=== PATIENT | female | born 1955 | race Caucasian/White ===

== ENCOUNTER 2018-05-19 07:17 | Emergency (ER) | payer BC ==
[~2018-05-19] VITALS: Ht 152.4 cm; Wt 72.6 kg
[~2018-05-19 07:17] MED LIST: BENTYL10 MG ORAL; ZOFRAN4 MG ORAL
[2018-05-19 07:38] VITALS: BP 136/76
--- NOTE | 2018-05-19 07:39 | NUR ---
ED Nurse Note:pt. caME with right ear pain for 1 week
--- NOTE | 2018-05-19 07:47 | Emergency Room Report ---
History of Present Illness General Chief Complaint: Earache Source: Patient Present Illness HPI Patient presents with complaints of right ear pain reports that previously was seen by her primary physician placed on oral antibiotics Appeared to improve minimally however again the pain has returned Patient feels pressure in that area Pain is 5 out of 10 Denies any headache denies any visual changes Denies any obvious trauma however she does use Q-tips in her ears Denies any change with position denies any discharge Allergies: Coded Allergies: No Known Allergies (Unverified , 06/19/15) Patient History Past Medical History: see triage record Pertinent Family History: none Now: No Reviewed Nursing Documentation: PMH: Agreed; PSxH: Agreed Nursing Documentation-PMH Past Medical History: No History, Except For Hx Seizures: Yes Review of Systems All Other Systems: negative except mentioned in HPI Physical Exam Vital Signs Date Time Temp Pulse Resp B/P (MAP) Pulse Ox O2 Delivery O2 Flow Rate FiO2 05/19/18 07:24 97.9 95 20 136/76 95 Room Air Sp02 EP Interpretation: reviewed, normal General Appearance: well appearing, no apparent distress Head: normocephalic, atraumatic Eyes: bilateral eye PERRL, bilateral eye EOMI ENT: other - Left ear is clear, the right ear shows edematous canal, the tympanic membrane is able to be visualized does not show any bulging or perforation. Mastoid is nontender Neck: supple Respiratory: lungs clear Musculoskeletal: normal inspection Neurologic: alert, oriented x3, responsive Skin: other - As noted above the canal does appear edematous just on general visualization Lymphatic: no adenopathy Medical Decision Making Diagnostic Impression: Primary Impression: Otitis externa ER Course Patient's clinical history and exam is consistent with otitis externa The canal is patent at this time and patient will be trialed on antibiotic drops I did discuss possible ENT follow-up as needed At this time patient remains stable and appropriate for initial conservative outpatient trial Last Vital Signs Date Time Temp Pulse Resp B/P (MAP) Pulse Ox O2 Delivery O2 Flow Rate FiO2 05/19/18 07:38 97.9 78 20 136/76 95 Room Air Status: improved Disposition: HOME, SELF-CARE Condition: Improved Additional Instructions: Patient is provided with the discharge instructions notified to follow up with primary doctor in the next 2-3 days otherwise return to the er with any worsening symptoms. Please note that this report is being documented using [employer] technology. This can lead to erroneous entry secondary to incorrect interpretation by the dictating instrument. Austen Grove DO May 19, 2018 07:47
[2018-05-19] MEDS ORDERED: CORTISPORIN EAR10 ML OTIC (07:48)
--- NOTE | 2018-05-19 07:54 | NUR ---
ED Nurse Note:pt. received d/c instructions with prescriptions and left ER with steady gait
== END 2018-05-19 08:21 | disposition home or self-care (01) ==
LOC: EMR 07:45
DX: H60.91 Unspecified otitis externa, right ear (principal)
CPT/HCPCS: 99282

== ENCOUNTER 2018-06-15 01:00 | Inpatient (IN) | payer BC ==
[~2018-06-15] VITALS: Ht 144.8 cm; Wt 74.8 kg
[~2018-06-15 01:00] MED LIST changes: +CORTISPORIN EAR10 ML OTIC
[2018-06-15] MEDS ORDERED: LORAZEPAM1 MG ORAL (01:15)
[2018-06-15] MEDS ORDERED: DILANTIN100 MG ORAL (01:15)
[2018-06-15 01:30] VITALS: BP 148/84
[2018-06-15] MEDS ORDERED: Lidocaine 1% 10mg/ml/Epi 0.005mg/ml 30ml vial INJ ONE (01:30)
[2018-06-15] MEDS ORDERED: LORazepam Inj 2mg/ml 1ml IV ONE (01:30)
--- NOTE | 2018-06-15 01:30 | NUR ---
ED Nurse Note: Pt was BIBA from home, c/o Seizure episode with right forehead was injuried with laceration. Pt is A/O X 4, Vital signs stable at this time.
--- NOTE | 2018-06-15 02:00 | NUR ---
ED Nurse Note: Blood and urine were collected and sent to Lab.
--- NOTE | 2018-06-15 02:10 | NUR ---
ED Nurse Note: Meds given as ordered.
[2018-06-15] MEDS ORDERED: Lidocaine 1% Plain 30 ml INJ ONE (02:20)
[2018-06-15 02:27] LABS: ANION GAP 5 mmol/L (5-15); BASOPHILS % (AUTO) 0.5 % (0.0-2.0); BLOOD UREA NITROGEN 14 mg/dL (7-18); CALCIUM 9.1 MG/DL (8.5-10.1); CARBON DIOXIDE 29 MMOL/L (21-32); CHLORIDE 102 MMOL/L (98-107); CREATININE 0.9 MG/DL (0.55-1.30); EOSINOPHILS % (AUTO) 0.2 % (0.0-3.0); HEMATOCRIT 43.6 % (37.0-47.0); HEMOGLOBIN 14.8 G/DL (12.0-16.0); LYMPHOCYTES % (AUTO) 14.9 % (20.0-45.0); MEAN CORPUSCULAR VOLUME 87 FL (80-99); NEUTROPHILS % (AUTO) 78.3 % (45.0-75.0); PLATELET COUNT 185 K/UL (150-450); RED CELL DISTRIBUTION WIDTH 11.9 % (11.6-14.8); SODIUM 136 MMOL/L (136-145); WHITE BLOOD COUNT 9.7 K/UL (4.8-10.8)
[2018-06-15 02:31] LABS: ALANINE AMINOTRANSFERASE 29 U/L (12-78); ALBUMIN 3.8 G/DL (3.4-5.0); ALBUMIN/GLOBULIN RATIO 1.1 (1.0-2.7); ALKALINE PHOSPHATASE 111 U/L (46-116); ASPARTATE AMINO TRANSFERASE 21 U/L (15-37); BILIRUBIN,TOTAL < 0.1 MG/DL (0.2-1.0); CREATINE KINASE 246 U/L (26-308)
[2018-06-15 02:33] LABS: APPEARANCE,URINE CLEAR; BILIRUBIN, URINE NEGATIVE (NEGATIVE); COLOR,URINE PALE YELLOW; GLUCOSE, URINE (UA) NEGATIVE (NEGATIVE); KETONES,URINE NEGATIVE (NEGATIVE); LEUKOCYTE ESTERASE ,URINE NEGATIVE (NEGATIVE); NITRITE,URINE NEGATIVE (NEGATIVE); PH,URINE 7 (4.5-8.0); PROTEIN,URINE NEGATIVE (NEGATIVE); UROBILINOGEN,URINE NORMAL MG/DL (0.0-1.0)
[2018-06-15] MEDS ORDERED: Phenytoin 500 MG in NS 110 ML IVPB STA (02:45)
[2018-06-15] MEDS ORDERED: Metoprolol 5mg/5ml Inj IVP STA (02:52)
[2018-06-15] MEDS ORDERED: Nitroglycerin 2% oint pkt TOPIC ONE (03:00)
--- NOTE | 2018-06-15 03:30 | NUR ---
Dr.J.Lewis prajapati([facility] for )
--- NOTE | 2018-06-15 04:39 | Emergency Room Report ---
History of Present Illness General Chief Complaint: Laceration Source: Patient Present Illness HPI Patient presents after having a seizure. She is on Dilantin. She hit her forehead and has a laceration there. She rates the pain 5/10. She denies neck pain. There is no other extremity trauma. She denies tongue trauma. Claims to be taking her medication. He claims her tetanus is up-to-date. No fevers, chills, nausea, vomiting, diarrhea chest pain palpitations, rashes other than the laceration. Allergies: Coded Allergies: No Known Allergies (Unverified , 06/19/15) Patient History Past Medical History: see triage record Social History: Denies: smoking, alcohol use, drug use Social History Narrative Last Menstrual Period: CHIN Reviewed Nursing Documentation: PMH: Agreed; PSxH: Agreed Nursing Documentation-PMH Past Medical History: No History, Except For Hx Seizures: Yes Review of Systems All Other Systems: negative except mentioned in HPI Physical Exam Vital Signs Date Time Temp Pulse Resp B/P (MAP) Pulse Ox O2 Delivery O2 Flow Rate FiO2 06/15/18 01:11 98.1 103 16 157/67 97 Room Air Sp02 EP Interpretation: reviewed, normal General Appearance: well appearing, no apparent distress, GCS 15 Head: normocephalic, other - Laceration right forehead Eyes: bilateral eye normal inspection, bilateral eye PERRL, bilateral eye EOMI ENT: moist mucus membranes Neck: full range of motion, supple, no bony tend Respiratory: chest non-tender, lungs clear, normal breath sounds Cardiovascular #1: regular rate, rhythm Cardiovascular #2: 2+ radial (R) Gastrointestinal: normal inspection, normal bowel sounds, non tender, no mass, non-distended Genitourinary: no CVA tenderness Musculoskeletal: back normal, gait/station normal, normal range of motion Neurologic: alert, oriented x3, stamp clerk III-XII nml as tested, motor strength/tone normal, DTRs symmetric, sensory intact, cerebellar normal, normal gait, speech normal Psychiatric: mood/affect normal Skin: warm/dry, laceration - Left eyebrow forehead Medical Decision Making Diagnostic Impression: Primary Impression: Seizure Additional Impressions: Facial laceration Qualified Codes: S01.81XA - Laceration without foreign body of other part of head, initial encounter Non-STEMI (non-ST elevated myocardial infarction) ER Course Patient presents after seizure. She has a facial laceration to her eyebrow. Differential includes arrhythmia, subtherapeutic medication level, electrolyte imbalance, brain bleed amongst others. Evaluation will be with EKG, CT of the head chest x-ray and labs. The patient will be given a dose of IV Ativan until labs return. He is placed on a personnel monitor and seizure precautions are observed. She will need to have this laceration.. It is expensive and through eyebrow and therefore plastic surgeon will be notified. EKG without injury. White count normal. Chest x-ray no infiltrates. CT without bleed. Called with elevated troponin. Patient given aspirin and metoprolol. Patient's Dilantin level subtherapeutic. An IV dose is given. Called Dr. Guthrie. He will come to repair the laceration. Patient improved after treatment. Admit tele as the patient has a positive troponin. The patient was discussed with Dr. Morgan. Laboratory Tests Test 06/15/18 01:55 White Blood Count 9.7 K/UL (4.8-10.8) Red Blood Count 5.00 M/UL (4.20-5.40) Hemoglobin 14.8 G/DL (12.0-16.0) Hematocrit 43.6 % (37.0-47.0) Mean Corpuscular Volume 87 FL (80-99) Mean Corpuscular Hemoglobin 29.6 PG (27.0-31.0) Mean Corpuscular Hemoglobin Concent 33.9 G/DL (32.0-36.0) Red Cell Distribution Width 11.9 % (11.6-14.8) Platelet Count 185 K/UL (150-450) Mean Platelet Volume 6.9 FL (6.5-10.1) Neutrophils (%) (Auto) 78.3 % (45.0-75.0) H Lymphocytes (%) (Auto) 14.9 % (20.0-45.0) L Monocytes (%) (Auto) 6.0 % (1.0-10.0) Eosinophils (%) (Auto) 0.2 % (0.0-3.0) Basophils (%) (Auto) 0.5 % (0.0-2.0) Urine Color Pale yellow Urine Appearance Clear Urine pH 7 (4.5-8.0) Urine Specific [place] 1.010 (1.005-1.035) Urine Protein Negative (NEGATIVE) Urine Glucose (UA) Negative (NEGATIVE) Urine Ketones Negative (NEGATIVE) Urine Blood 2+ (NEGATIVE) H Urine Nitrite Negative (NEGATIVE) Urine Bilirubin Negative (NEGATIVE) Urine Urobilinogen Normal MG/DL (0.0-1.0) Urine Leukocyte Esterase Negative (NEGATIVE) Urine RBC 0-2 /HPF (0 - 2) Urine WBC 0-2 /HPF (0 - 2) Urine Squamous Epithelial Cells Occasional /LPF Urine Bacteria None /HPF (NONE) Sodium Level 136 MMOL/L (136-145) Potassium Level 4.0 MMOL/L (3.5-5.1) Chloride Level 102 MMOL/L (98-107) Carbon Dioxide Level 29 MMOL/L (21-32) Anion Gap 5 mmol/L (5-15) Blood Urea Nitrogen 14 mg/dL (7-18) Creatinine 0.9 MG/DL (0.55-1.30) Estimate Glomerular Filtration Rate > 60 mL/min (>60) Glucose Level 124 MG/DL (74-106) H Calcium Level 9.1 MG/DL (8.5-10.1) Total Bilirubin < 0.1 MG/DL (0.2-1.0) L Aspartate Amino Transferase (AST) 21 U/L (15-37) Alanine Aminotransferase (ALT) 29 U/L (12-78) Alkaline Phosphatase 111 U/L (46-116) Total Creatine Kinase 246 U/L (26-308) Troponin I 0.161 ng/mL (0.000-0.056) Total Protein 7.4 G/DL (6.4-8.2) Albumin 3.8 G/DL (3.4-5.0) Globulin 3.6 g/dL Albumin/Globulin Ratio 1.1 (1.0-2.7) Urine Opiates Screen Negative (NEGATIVE) Urine Barbiturates Screen Negative (NEGATIVE) Phenytoin (Dilantin) Level 7.3 ug/mL (10-20) L Phencyclidine (PCP) Screen Negative (NEGATIVE) Urine Amphetamines Screen Negative (NEGATIVE) Urine Benzodiazepines Screen Negative (NEGATIVE) Urine Cocaine Screen Negative (NEGATIVE) Urine Marijuana (THC) Screen Negative (NEGATIVE) Serum Alcohol < 3 mg/dL EKG Diagnostic Results Rate: tachycardiac Rhythm: NSR ST Segments: no acute changes Rhythm Strip Diag. Results EP Interpretation: yes Rhythm: no PVC's, no ectopy, other - Sinus tachycardia Chest X-Ray Diagnostic Results Chest X-Ray Diagnostic Results : Chest X-Ray Ordered: Yes # of Views/Limited/Complete: 1 View Indication: Other Interpretation: no consolidation, no effusion, no pneumothorax, other - inc cor Impression: Other Electronically Signed by: Electronically signed by Jamie Ballard MD CT/MRI/US Diagnostic Results CT/MRI/US Diagnostic Results : Imaging Test Ordered: head Impression no acute abnormality. Sinusitis Last Vital Signs Date Time Temp Pulse Resp B/P (MAP) Pulse Ox O2 Delivery O2 Flow Rate FiO2 06/15/18 12:00 Room Air 06/15/18 12:00 77 06/15/18 07:00 98.1 16 112/71 97 Status: improved Disposition: ADMITTED INPATIENT Condition: Serious Referrals: NON PHYSICIAN (PCP) Jamie Ballard MD Jun 15, 2018 04:39
--- NOTE | 2018-06-15 05:37 | NUR ---
After speaking with Dr.Liu Pitts states is on the way, do not take patient upstairs to her room yet.
--- NOTE | 2018-06-15 06:03 | NUR ---
is here now.
[2018-06-15] MEDS ORDERED: Bacitracin Oint UD TOPIC ONE (06:15)
--- NOTE | 2018-06-15 06:39 | NUR ---
NURSE NOTES: Received a phone report from RICKY Abebe.Patient stable,A&Ox4 SR on monitor worker,tolerated r/air well,lungs clear, IV asymptomatic,intact on R f/arm and R/hand 20G ,BS active in all quadrants,waiting patient to the floor.
--- NOTE | 2018-06-15 06:55 | NUR ---
NURSE NOTES: Patient transferred to the floor in stable condition,no c/o pain,no respiratory distress noted,rails patted for seizures precautions,belongings list signed, on bedside.
--- NOTE | 2018-06-15 07:00 | NUR ---
TRANSFER TO FLOOR: Patient transferred to [facility] as ordered . Report given to Maricel/RN . Belongings sent with pt and rechecked with RN. Pt is A/O X 4. VSS.
--- NOTE | 2018-06-15 07:25 | NUR ---
HAND-OFF: Report given to RICKY Chavez.Patient stable.
--- NOTE | 2018-06-15 07:30 | NUR ---
NURSE NOTES: Received report from Maricel GARCÍA. Pt is awake, alert, oriented x4, family at bedside. On room air with no respiratory distress, however reports nasal congestion, which she has had for x2 weeks. Denies chest pain. Denies nausea. IV access on right FA #20G, and right hand #20G, both saline locks, patent/intact. Skin has right forehead laceration, post suture placement in ER, covered with dressing. Per pt report, she is ambulatory, currently placed on seizure precautions, post x1 episode of seizure at home prior to admission, which led to her fall at home sustaining the forehead laceration. Side rails are padded, bed in lowest position, three side rails up, brakes engaged, call light is placed within easy reach. Will contact Dr Valdez for new admission orders and follow plan of care per MD orders and protocol.
[2018-06-15 08:00] VITALS: BP 120/63
[2018-06-15] MEDS ORDERED: Morphine Sulfate 2mg/ml Inj(IV/IM USE ONLY) IVP PRN (08:45)
[2018-06-15] MEDS ORDERED: Miralax 17gm pkt ORAL PRN (08:45)
[2018-06-15] MEDS ORDERED: Nitroglycerin Subl 0.4mg tab SL PRN (08:45)
[2018-06-15] MEDS ORDERED: Morphine Sulfate 4mg/ml Inj (IV USE ONLY) IVP PRN (08:45)
[2018-06-15] MEDS ORDERED: LORazepam Inj 2mg/ml 1ml IV PRN (08:45)
[2018-06-15] MEDS ORDERED: Mylanta II UD 30ml ORAL PRN (08:45)
[2018-06-15] MEDS ORDERED: Phenytoin 100mg cap ORAL SCH (09:00)
[2018-06-15] MEDS: Enoxaparin 40mg Inj SUBQ SCH (09:35)
[2018-06-15] MEDS: Docusate 100mg cap ORAL SCH ×2 (09:36→21:36)
[2018-06-15 11:59] LABS: PHOSPHORUS 3.7 MG/DL (2.5-4.9)
[2018-06-15 12:00] VITALS: BP 114/64
[2018-06-15] MEDS: Flonase Nasal Inhaler 16gm NASAL SCH ×2 (12:00→17:53)
[2018-06-15] MEDS: Phenylephrine 0.25% Nasal Spray NASAL PRN (12:00)
[2018-06-15] MEDS ORDERED: Ocean Nasal Spray 45ml NASAL PRN (12:00)
--- NOTE | 2018-06-15 12:09 | History and Physical ---
History of Present Illness General Date patient seen: Jun 15, 2018 Time patient seen: 09:15 Reason for Hospitalization: seizure, elevated troponin Present Illness HPI 62 y/o Fris[place] female who presented to the ED last night with seizures, unwitnessed. Pt has a history of seizure disorder, followed by Dr. Swanson as an outpatient. She is compliant with her dilantin, takes 200mg bid without missing any recent doses. No fevers/chills, flu like symptoms, or any other complaints. Pt fell and hit her head, sustained a laceration on the R forehead region. She has been seizure free for 5 years on this current dose. She was loaded with 500mg IV dilantin in the ED and also given ativan. She denies hx of CAD/CHF, and denies ever experiencing ana pain or dyspnea, however a trop was checked in the ED and it was indeterminate range. The patient was then admitted to the floor for continued eval and care. CT head in ED also was neg for acute pathology. Allergies: Coded Allergies: No Known Allergies (Unverified , 06/19/15) Medication History Scheduled Dicyclomine Hcl* (Bentyl*), 10 MG ORAL FOUR TIMES A DAY Lorazepam* (Lorazepam*), 1 MG ORAL DAILY, (Reported) Neomycin/Polymyxin B Sulf/Hc* (Cortisporin Ear Solution*), 2 DROP OTIC FOUR TIMES A DAY Phenytoin Sodium Extended* (Dilantin*), 200 MG ORAL TWICE A DAY, (Reported) Scheduled PRN Ondansetron (Zofran), 4 MG ORAL Q6H PRN for Nausea & Vomiting Patient History History Provided By: Patient Healthcare decision maker Resuscitation status Advanced Directive on File Past Medical/Surgical History Past Medical/Surgical History: (1) Seizure Social History Social History: (1) No significant social history (2) Family history in first degree relatives is unremarkable Review of Systems Constitutional: Reports: no symptoms Eye: Reports: no symptoms ENT: Reports: no symptoms Respiratory: Reports: no symptoms Cardiovascular: Reports: no symptoms Gastrointestinal: Reports: no symptoms Genitourinary: Reports: no symptoms Musculoskeletal: Reports: no symptoms Skin: Reports: no symptoms Psychiatric: Reports: no symptoms Neurological: Reports: seizure Endocrine: Reports: no symptoms Hematologic/Lymphatic: Reports: no symptoms Physical Exam General Appearance: WD/WN, no apparent distress, alert Physical Exam Narrative General: alert, cooperative, no distress, appears stated age Head: R forehead laceration, dressing c/d/i Eyes: conjunctivae/corneas clear. PERRL, EOM's intact Throat: lips, mucosa, and tongue normal. MMM Neck: supple, symmetrical, trachea midline, and no JVD Lungs: clear to auscultation bilaterally Heart: regular rate and rhythm, S1, S2 normal, no murmur, click, rub or gallop Abdomen: soft, non-tender, non-distended, bowel sounds normal; no masses or organomegaly Extremities: extremities normal, atraumatic, no cyanosis or edema Pulses: 2+ and symmetric Skin: skin color, texture, turgor normal; no rashes or lesions Neurologic: grossly normal, no focal deficits Last 24 Hour Vital Signs Date Time Temp Pulse Resp B/P (MAP) Pulse Ox O2 Delivery O2 Flow Rate FiO2 06/15/18 08:00 90 06/15/18 07:00 98.1 89 16 112/71 97 Room Air 06/15/18 04:58 101 148/84 06/15/18 04:57 148/84 06/15/18 02:40 98.1 06/15/18 01:30 98.1 101 16 148/84 97 Room Air 06/15/18 01:11 98.1 103 16 157/67 97 Room Air Intake and Output 06/14/18 06/15/18 19:00 07:00 Intake Total 1600 ml Balance 1600 ml Intake Oral 0 ml IV Total 1600 ml Laboratory Tests Test 06/15/18 01:55 06/15/18 11:05 White Blood Count 9.7 K/UL (4.8-10.8) Red Blood Count 5.00 M/UL (4.20-5.40) Hemoglobin 14.8 G/DL (12.0-16.0) Hematocrit 43.6 % (37.0-47.0) Mean Corpuscular Volume 87 FL (80-99) Mean Corpuscular Hemoglobin 29.6 PG (27.0-31.0) Mean Corpuscular Hemoglobin Concent 33.9 G/DL (32.0-36.0) Red Cell Distribution Width 11.9 % (11.6-14.8) Platelet Count 185 K/UL (150-450) Mean Platelet Volume 6.9 FL (6.5-10.1) Neutrophils (%) (Auto) 78.3 % (45.0-75.0) H Lymphocytes (%) (Auto) 14.9 % (20.0-45.0) L Monocytes (%) (Auto) 6.0 % (1.0-10.0) Eosinophils (%) (Auto) 0.2 % (0.0-3.0) Basophils (%) (Auto) 0.5 % (0.0-2.0) Urine Color Pale yellow Urine Appearance Clear Urine pH 7 (4.5-8.0) Urine Specific [place] 1.010 (1.005-1.035) Urine Protein Negative (NEGATIVE) Urine Glucose (UA) Negative (NEGATIVE) Urine Ketones Negative (NEGATIVE) Urine Blood 2+ (NEGATIVE) H Urine Nitrite Negative (NEGATIVE) Urine Bilirubin Negative (NEGATIVE) Urine Urobilinogen Normal MG/DL (0.0-1.0) Urine Leukocyte Esterase Negative (NEGATIVE) Urine RBC 0-2 /HPF (0 - 2) Urine WBC 0-2 /HPF (0 - 2) Urine Squamous Epithelial Cells Occasional /LPF Urine Bacteria None /HPF (NONE) Sodium Level 136 MMOL/L (136-145) Potassium Level 4.0 MMOL/L (3.5-5.1) Chloride Level 102 MMOL/L (98-107) Carbon Dioxide Level 29 MMOL/L (21-32) Anion Gap 5 mmol/L (5-15) Blood Urea Nitrogen 14 mg/dL (7-18) Creatinine 0.9 MG/DL (0.55-1.30) Estimat Glomerular Filtration Rate > 60 mL/min (>60) Glucose Level 124 MG/DL (74-106) H Calcium Level 9.1 MG/DL (8.5-10.1) Total Bilirubin < 0.1 MG/DL (0.2-1.0) L Aspartate Amino Transf (AST/SGOT) 21 U/L (15-37) Alanine Aminotransferase (ALT/SGPT) 29 U/L (12-78) Alkaline Phosphatase 111 U/L (46-116) Total Creatine Kinase 246 U/L (26-308) Troponin I 0.161 ng/mL (0.000-0.056) Pending Total Protein 7.4 G/DL (6.4-8.2) Albumin 3.8 G/DL (3.4-5.0) Globulin 3.6 g/dL Albumin/Globulin Ratio 1.1 (1.0-2.7) Urine Opiates Screen Negative (NEGATIVE) Urine Barbiturates Screen Negative (NEGATIVE) Phenytoin (Dilantin) Level 7.3 ug/mL (10-20) L Phencyclidine (PCP) Screen Negative (NEGATIVE) Urine Amphetamines Screen Negative (NEGATIVE) Urine Benzodiazepines Screen Negative (NEGATIVE) Urine Cocaine Screen Negative (NEGATIVE) Urine Marijuana (THC) Screen Negative (NEGATIVE) Serum Alcohol < 3 mg/dL Phosphorus Level 3.7 MG/DL (2.5-4.9) Magnesium Level 2.2 MG/DL (1.8-2.4) Height (Feet): 4 Height (Inches): 9.00 Weight (Pounds): 165 Medications Current Medications Medications (Trade) Dose Ordered Sig/Narendra Route PRN Reason Start Time Stop Time Status Last Admin Dose Admin Acetaminophen (Tylenol) 650 mg Q4H PRN ORAL Mild Pain (Pain Scale 1-3) 06/15/18 08:45 07/15/18 08:44 Acetaminophen (Tylenol) 650 mg Q4H PRN ORAL T>100.5 06/15/18 08:45 07/15/18 08:44 Al Hydroxide/Mg Hydroxide (Mylanta II) 30 ml Q6H PRN ORAL dyspepsia 06/15/18 08:45 07/15/18 08:44 Bisacodyl (Dulcolax) 10 mg HSPRN PRN RECTAL Constipation 06/15/18 08:45 07/15/18 08:44 Dextrose (Dextrose 50%) 25 ml Q30M PRN IV Hypoglycemia 06/15/18 08:45 07/15/18 08:44 Dextrose (Dextrose 50%) 50 ml Q30M PRN IV Hypoglycemia 06/15/18 08:45 07/15/18 08:44 Dicyclomine HCl (Bentyl) 10 mg FOUR TIMES A DAY ORAL 06/15/18 11:00 07/15/18 10:59 Diphenhydramine HCl (Benadryl) 25 mg Q6H PRN ORAL Itching/Pruritis 06/15/18 08:45 07/15/18 08:44 Docusate Sodium (Colace) 100 mg EVERY 12 HOURS ORAL 06/15/18 09:00 07/15/18 08:59 06/15/18 09:36 Enoxaparin Sodium (Lovenox) 40 mg DAILY SUBQ 06/15/18 10:00 07/15/18 09:59 06/15/18 09:35 Fluticasone Propionate (Flonase) 1 spray TWICE A DAY NASAL 06/15/18 12:00 07/15/18 11:59 06/15/18 12:00 Lorazepam (Ativan 2mg/ml 1ml) 1 mg Q2H PRN IV For Seizures 06/15/18 08:45 06/22/18 08:44 Magnesium Hydroxide (Mom) 30 ml HSPRN PRN ORAL Constipation 06/15/18 21:00 07/15/18 20:59 Morphine Sulfate (Morphine Sulfate) 2 mg Q4H PRN IVP Moderate Pain (Pain Scale 4-6) 06/15/18 08:45 06/22/18 08:44 Morphine Sulfate (Morphine Sulfate) 4 mg Q4H PRN IVP Severe Pain (Pain Scale 7-10) 06/15/18 08:45 06/22/18 08:44 Nitroglycerin (Ntg) 0.4 mg Q5M X 3 DOSES PRN SL Prn Chest Pain 06/15/18 08:45 07/15/18 08:44 Ondansetron HCl (Zofran) 4 mg Q6H PRN IVP Nausea & Vomiting 06/15/18 08:45 07/15/18 08:44 Phenylephrine HCl (John-Synephrine 0.25% Nasal Soln) 1 sprays BID PRN NASAL NASAL CONGESTION 06/15/18 12:00 07/15/18 11:59 06/15/18 12:00 Phenytoin (Dilantin) 225 mg TWICE A DAY ORAL 06/15/18 18:00 07/15/18 08:59 Polyethylene Glycol (Miralax) 17 gm HSPRN PRN ORAL Constipation 06/15/18 08:45 07/15/18 08:44 Sodium Chloride ([place] Nasal [place]) 1 spray Q4H PRN NASAL NASAL CONGESTION 06/15/18 12:00 07/15/18 11:59 06/15/18 12:00 Assessment/Plan Problem List: (1) Seizure Assessment & Plan: Recurrent seizures with subtherapeutic dilantin level, unclear etiology Discussed case with Dr. Kam Yanes over the phone who is covering [place] this weekend. He stated to increase the dose of dilantin to 450mg/day total, and that if electrolyted were normal the patient could be discharged home with close oupt followup Ativan prn CT head neg ICD Codes: R56.9 - Unspecified convulsions SNOMED: 83416719 (2) Elevated troponin level Assessment & Plan: Unclear etiology as to elevated troponin, pt asymptomatic without any history of cardiac issues Cont cardiac exercise specialist Trend troponins, serial EKGs Cardiology consult called. ICD Codes: R74.8 - Abnormal levels of other serum enzymes SNOMED: 232782740, 604040783, [id number] (3) Facial laceration Assessment & Plan: s/p lac repair by Plastics, Dr. Ernesto Guthrie Cont dressing care ICD Codes: S01.81XA - Laceration without foreign body of other part of head, initial encounter SNOMED: 092074907 Qualifiers: Qualified Codes: S01.81XA - Laceration without foreign body of other part of head, initial encounter Fatoumata Valdez MD Jun 15, 2018 12:09
[2018-06-15] MEDS: Dicyclomine 10mg Cap ORAL SCH ×4 (12:21→21:36)
--- NOTE | 2018-06-15 13:00 | NUR ---
NURSE NOTES: Dr Carter saw pt at bedside, aware of elevated troponin 0.238 from 0.161. 2D Echo ordered, resulted 60% EF.
--- NOTE | 2018-06-15 13:31 | Consultation ---
History of Present Illness General Date patient seen: Jun 15, 2018 Time patient seen: 13:25 Chief Complaint: Laceration Present Illness HPI 62 y/o Japanese female with seizure disorder presents with breakthrough, she is compliant with Meds, no fever no trauma, sustained facial laceration. She has been seizure free for 5 years on this current dose. Cardiology consulted for elevated rising troponin. no chest pain no sob. Allergies: Coded Allergies: No Known Allergies (Unverified , 06/19/15) Medication History Scheduled Dicyclomine Hcl* (Bentyl*), 10 MG ORAL FOUR TIMES A DAY Lorazepam* (Lorazepam*), 1 MG ORAL DAILY, (Reported) Neomycin/Polymyxin B Sulf/Hc* (Cortisporin Ear Solution*), 2 DROP OTIC FOUR TIMES A DAY Phenytoin Sodium Extended* (Dilantin*), 200 MG ORAL TWICE A DAY, (Reported) Scheduled PRN Ondansetron (Zofran), 4 MG ORAL Q6H PRN for Nausea & Vomiting Patient History Healthcare decision maker Resuscitation status Full Code Advanced Directive on File Review of Systems Constitutional: Reports: no symptoms Eye: Reports: no symptoms ENT: Reports: no symptoms Respiratory: Reports: no symptoms Cardiovascular: Reports: no symptoms Gastrointestinal: Reports: no symptoms Genitourinary: Reports: no symptoms Musculoskeletal: Reports: no symptoms Skin: Reports: no symptoms Psychiatric: Reports: no symptoms Neurological: Reports: seizure Endocrine: Reports: no symptoms Hematologic/Lymphatic: Reports: no symptoms Physical Exam General Appearance: no apparent distress, alert Lines, tubes and drains: peripheral HEENT: normocephalic, atraumatic, anicteric Neck: non-tender, normal alignment, supple, normal inspection Respiratory/Chest: chest wall non-tender, lungs clear, normal breath sounds, no respiratory distress Cardiovascular/Chest: normal peripheral pulses, normal rate, regular rhythm Abdomen: normal bowel sounds, non tender Extremities: normal range of motion, non-tender, normal inspection 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 II-XII grossly normal, no motor/sensory deficits Last 24 Hour Vital Signs Date Time Temp Pulse Resp B/P (MAP) Pulse Ox O2 Delivery O2 Flow Rate FiO2 06/15/18 12:00 Room Air 06/15/18 12:00 77 06/15/18 12:00 98.8 85 19 114/64 (81) 95 06/15/18 08:00 98.0 82 18 120/63 (82) 98 06/15/18 08:00 90 06/15/18 07:00 98.1 89 16 112/71 97 Room Air 06/15/18 07:00 Room Air 06/15/18 04:58 101 148/84 06/15/18 04:57 148/84 06/15/18 02:40 98.1 06/15/18 01:30 98.1 101 16 148/84 97 Room Air 06/15/18 01:11 98.1 103 16 157/67 97 Room Air Intake and Output 06/14/18 06/15/18 19:00 07:00 Intake Total 1600 ml Balance 1600 ml Intake Oral 0 ml IV Total 1600 ml Laboratory Tests Test 06/15/18 01:55 06/15/18 11:05 White Blood Count 9.7 K/UL (4.8-10.8) Red Blood Count 5.00 M/UL (4.20-5.40) Hemoglobin 14.8 G/DL (12.0-16.0) Hematocrit 43.6 % (37.0-47.0) Mean Corpuscular Volume 87 FL (80-99) Mean Corpuscular Hemoglobin 29.6 PG (27.0-31.0) Mean Corpuscular Hemoglobin Concent 33.9 G/DL (32.0-36.0) Red Cell Distribution Width 11.9 % (11.6-14.8) Platelet Count 185 K/UL (150-450) Mean Platelet Volume 6.9 FL (6.5-10.1) Neutrophils (%) (Auto) 78.3 % (45.0-75.0) H Lymphocytes (%) (Auto) 14.9 % (20.0-45.0) L Monocytes (%) (Auto) 6.0 % (1.0-10.0) Eosinophils (%) (Auto) 0.2 % (0.0-3.0) Basophils (%) (Auto) 0.5 % (0.0-2.0) Urine Color Pale yellow Urine Appearance Clear Urine pH 7 (4.5-8.0) Urine Specific [place] 1.010 (1.005-1.035) Urine Protein Negative (NEGATIVE) Urine Glucose (UA) Negative (NEGATIVE) Urine Ketones Negative (NEGATIVE) Urine Blood 2+ (NEGATIVE) H Urine Nitrite Negative (NEGATIVE) Urine Bilirubin Negative (NEGATIVE) Urine Urobilinogen Normal MG/DL (0.0-1.0) Urine Leukocyte Esterase Negative (NEGATIVE) Urine RBC 0-2 /HPF (0 - 2) Urine WBC 0-2 /HPF (0 - 2) Urine Squamous Epithelial Cells Occasional /LPF Urine Bacteria None /HPF (NONE) Sodium Level 136 MMOL/L (136-145) Potassium Level 4.0 MMOL/L (3.5-5.1) Chloride Level 102 MMOL/L (98-107) Carbon Dioxide Level 29 MMOL/L (21-32) Anion Gap 5 mmol/L (5-15) Blood Urea Nitrogen 14 mg/dL (7-18) Creatinine 0.9 MG/DL (0.55-1.30) Estimat Glomerular Filtration Rate > 60 mL/min (>60) Glucose Level 124 MG/DL (74-106) H Calcium Level 9.1 MG/DL (8.5-10.1) Total Bilirubin < 0.1 MG/DL (0.2-1.0) L Aspartate Amino Transf (AST/SGOT) 21 U/L (15-37) Alanine Aminotransferase (ALT/SGPT) 29 U/L (12-78) Alkaline Phosphatase 111 U/L (46-116) Total Creatine Kinase 246 U/L (26-308) Troponin I 0.161 ng/mL (0.000-0.056) 0.238 ng/mL (0.000-0.056) Total Protein 7.4 G/DL (6.4-8.2) Albumin 3.8 G/DL (3.4-5.0) Globulin 3.6 g/dL Albumin/Globulin Ratio 1.1 (1.0-2.7) Urine Opiates Screen Negative (NEGATIVE) Urine Barbiturates Screen Negative (NEGATIVE) Phenytoin (Dilantin) Level 7.3 ug/mL (10-20) L Phencyclidine (PCP) Screen Negative (NEGATIVE) Urine Amphetamines Screen Negative (NEGATIVE) Urine Benzodiazepines Screen Negative (NEGATIVE) Urine Cocaine Screen Negative (NEGATIVE) Urine Marijuana (THC) Screen Negative (NEGATIVE) Serum Alcohol < 3 mg/dL Phosphorus Level 3.7 MG/DL (2.5-4.9) Magnesium Level 2.2 MG/DL (1.8-2.4) Height (Feet): 4 Height (Inches): 9.00 Weight (Pounds): 165 Medications Current Medications Medications (Trade) Dose Ordered Sig/Narendra Route PRN Reason Start Time Stop Time Status Last Admin Dose Admin Acetaminophen (Tylenol) 650 mg Q4H PRN ORAL Mild Pain (Pain Scale 1-3) 06/15/18 08:45 07/15/18 08:44 Acetaminophen (Tylenol) 650 mg Q4H PRN ORAL T>100.5 06/15/18 08:45 07/15/18 08:44 Al Hydroxide/Mg Hydroxide (Mylanta II) 30 ml Q6H PRN ORAL dyspepsia 06/15/18 08:45 07/15/18 08:44 Bisacodyl (Dulcolax) 10 mg HSPRN PRN RECTAL Constipation 06/15/18 08:45 07/15/18 08:44 Dextrose (Dextrose 50%) 25 ml Q30M PRN IV Hypoglycemia 06/15/18 08:45 07/15/18 08:44 Dextrose (Dextrose 50%) 50 ml Q30M PRN IV Hypoglycemia 06/15/18 08:45 07/15/18 08:44 Dicyclomine HCl (Bentyl) 10 mg FOUR TIMES A DAY ORAL 06/15/18 11:00 07/15/18 10:59 06/15/18 12:21 Diphenhydramine HCl (Benadryl) 25 mg Q6H PRN ORAL Itching/Pruritis 06/15/18 08:45 07/15/18 08:44 Docusate Sodium (Colace) 100 mg EVERY 12 HOURS ORAL 06/15/18 09:00 07/15/18 08:59 06/15/18 09:36 Enoxaparin Sodium (Lovenox) 40 mg DAILY SUBQ 06/15/18 10:00 07/15/18 09:59 06/15/18 09:35 Fluticasone Propionate (Flonase) 1 spray TWICE A DAY NASAL 06/15/18 12:00 07/15/18 11:59 06/15/18 12:00 Lorazepam (Ativan 2mg/ml 1ml) 1 mg Q2H PRN IV For Seizures 06/15/18 08:45 06/22/18 08:44 Magnesium Hydroxide (Mom) 30 ml HSPRN PRN ORAL Constipation 06/15/18 21:00 07/15/18 20:59 Morphine Sulfate (Morphine Sulfate) 2 mg Q4H PRN IVP Moderate Pain (Pain Scale 4-6) 06/15/18 08:45 06/22/18 08:44 Morphine Sulfate (Morphine Sulfate) 4 mg Q4H PRN IVP Severe Pain (Pain Scale 7-10) 06/15/18 08:45 06/22/18 08:44 Nitroglycerin (Ntg) 0.4 mg Q5M X 3 DOSES PRN SL Prn Chest Pain 06/15/18 08:45 07/15/18 08:44 Ondansetron HCl (Zofran) 4 mg Q6H PRN IVP Nausea & Vomiting 06/15/18 08:45 07/15/18 08:44 Phenylephrine HCl (John-Synephrine 0.25% Nasal Soln) 1 sprays BID PRN NASAL NASAL CONGESTION 06/15/18 12:00 07/15/18 11:59 06/15/18 12:00 Phenytoin (Dilantin) 225 mg TWICE A DAY ORAL 06/15/18 18:00 07/15/18 08:59 Polyethylene Glycol (Miralax) 17 gm HSPRN PRN ORAL Constipation 06/15/18 08:45 07/15/18 08:44 Sodium Chloride ([place] Nasal [place]) 1 spray Q4H PRN NASAL NASAL CONGESTION 06/15/18 12:00 07/15/18 11:59 06/15/18 12:00 Assessment/Plan Assessment/Plan Assessment Seizure Elevated Troponin Facial laceration Elevated troponin levels can occur after a GTC seizure. Patients at risk are the elderly and those with cardiovascular risk factors. Elevation of troponin levels after a GTC seizure reflects a minor ischemic cardiac injury related to the demand ischemia during the sympathetic overactivity that accompanies a GTC seizure Continue to trend troponin until peak No indication for heparin Continue telemetry Echocardiogram to evaluate LV function wall motion Routine outpatient stress test Jamie Carter MD Jun 15, 2018 13:31
[2018-06-15 16:00] VITALS: BP 110/54
[2018-06-15] MEDS: Phenytoin Susp 100mg/4ml ORAL SCH (17:53)
--- NOTE | 2018-06-15 19:26 | NUR ---
HAND-OFF: Report given to Coleman GARCÍA. Pt is resting in bed in stable condition, family at bedside. Endorsed plan of care.
--- NOTE | 2018-06-15 19:30 | NUR ---
NURSE NOTES: Received pt is asleep. Easily awakened. alert, oriented x4. Family at bedside. On room air. NSR on satellite project site monitor. Denies any pain, SOB or discomfort. No seizure activity noted up to present moment. IV access on rt FA #20G and rt hand #20G, both saline locks, patent and intact. Right forehead laceration d/t fall from seizure activity w/suture placed in ER, with dressing dry and intact. Side rails padded for seizure precautions. Bed in lowest position, w/three side rails up, brakes engaged, call light is w/in reach. Will continue POC
[2018-06-15 20:00] VITALS: BP 106/63
[2018-06-15] MEDS ORDERED: Milk of Magnesia 30ml Ud ORAL PRN (21:00)
--- NOTE | 2018-06-15 23:30 | NUR ---
NURSE NOTES: Asleep. Easily awakened. A/Ox4. at bedside. On room air. NSR on phototypesetting equipment monitor. Denies pain, SOB or discomfort. No seizure activity noted. Bed in lowest position, w/three side rails up, brakes engaged, call light is w/in reach. Will continue POC
[2018-06-16] VITALS: BP 116/55
[2018-06-16 04:00] VITALS: BP 120/58
--- NOTE | 2018-06-16 05:30 | NUR ---
NURSE NOTES A/A/Ox4. at bedside. On room air. NSR on cardiac exercise specialist. Denies pain, SOB or discomfort. No distress noted. No seizure activity noted. Bed in lowest position. call light is w/in reach. Will continue POC
[2018-06-16 06:32] LABS: BASOPHILS % (AUTO) 0.4 % (0.0-2.0); EOSINOPHILS % (AUTO) 0.2 % (0.0-3.0); HEMATOCRIT 37.7 % (37.0-47.0); HEMOGLOBIN 12.8 G/DL (12.0-16.0); LYMPHOCYTES % (AUTO) 23.5 % (20.0-45.0); MEAN CORPUSCULAR VOLUME 88 FL (80-99); NEUTROPHILS % (AUTO) 67.8 % (45.0-75.0); PLATELET COUNT 168 K/UL (150-450); RED BLOOD COUNT 4.29 M/UL (4.20-5.40); WHITE BLOOD COUNT 8.5 K/UL (4.8-10.8)
--- NOTE | 2018-06-16 07:20 | NUR ---
NURSE NOTES: Receive report from Coleman Arce patient ,patient awake eating breakfast, at bedside,instructed to call if need anything,not to get out bed by herself always call and wait for help-verbaluze understanding Addendum: 06/16/18 at 0806 by Janine ORTIZ RN verbalize understanding
[2018-06-16 07:30] LABS: ALANINE AMINOTRANSFERASE 21 U/L (12-78); ALBUMIN 3.2 G/DL (3.4-5.0); ALKALINE PHOSPHATASE 85 U/L (46-116); ANION GAP 8 mmol/L (5-15); ASPARTATE AMINO TRANSFERASE 20 U/L (15-37); BILIRUBIN,TOTAL 0.3 MG/DL (0.2-1.0); BLOOD UREA NITROGEN 10 mg/dL (7-18); CALCIUM 8.4 MG/DL (8.5-10.1); CARBON DIOXIDE 27 MMOL/L (21-32); CHLORIDE 105 MMOL/L (98-107); CREATININE 0.7 MG/DL (0.55-1.30); POTASSIUM 3.4 MMOL/L (3.5-5.1); SODIUM 140 MMOL/L (136-145)
[2018-06-16 08:00] VITALS: BP 129/62
[2018-06-16] MEDS: Dicyclomine 10mg Cap ORAL SCH ×2 (08:58→12:08)
[2018-06-16] MEDS: Docusate 100mg cap ORAL SCH (08:58)
[2018-06-16] MEDS: Phenytoin Susp 100mg/4ml ORAL SCH (08:59)
[2018-06-16] MEDS: Enoxaparin 40mg Inj SUBQ SCH (09:01)
[2018-06-16] MEDS: Phenylephrine 0.25% Nasal Spray NASAL PRN (09:04)
[2018-06-16] MEDS: Flonase Nasal Inhaler 16gm NASAL SCH (09:04)
--- NOTE | 2018-06-16 09:45 | NUR ---
NURSE NOTES: Received patient from RICKY Lee. Patient in bed and asleep. In room air. In no respiratory distress. case monitor in placed. Dressing on the right side of the head due to laceration from seizure at home. Per RN, patient is able to ambulate to bathroom with assistance. Bed in lowest position locked with side rails up. Will continue to follow plan of care.
--- NOTE | 2018-06-16 09:45 | NUR ---
HAND-OFF: Report given to RICKY CARTER ,patient resting,no seizure, went home,patient reminded not to get out bed by herself ,fall risk,seizure precaution,padded side rails .
--- NOTE | 2018-06-16 11:12 | NUR ---
CASE MANAGEMENT: INITIAL REVIEW 62 YO F PRESENTED TO OUR ED FROM HOME CC: LACERATION PMHx: SZ. SI:TROPONIN. SZ. T 98.1 HR 103 RR 16 B/P 157/67 SATS 97% ON RA GLU 124 IS: ATIVAN IV X1 NS BOLUS X2 TYLENOL PO X1 PHENYTOIN IV X1 ASA PO X1 NITRO BID TOP X1 LOPRESSOR IV X1 PATIENT ADMITTED TO [facility] @ 3552 DCP: PATIENT TO BE DISCHARGED TO HOME ONCE MEDICALLY CLEARED. PLAN OF CARE: CARDIO EVAL Addendum: 06/17/18 at 2006 by Trudi Andrea CM [employer]
[2018-06-16] MEDS ORDERED: PHENYTOIN100 MG/4 M ORAL (11:56)
[2018-06-16 12:00] VITALS: BP 116/65
--- NOTE | 2018-06-16 13:10 | NUR ---
Discharge: Patient is being discharged from medical care. Awake, alert and oriented x4. After care instructions were given. Patient verbalized understanding of After care instructions and medications. Dressing on the right laceration was changed. Patient signed patient consent in the medical record for patient destination upon discharge. All medical devices such as IV, traffic monitor specialist, and ID band were removed. Patient was put in a wheelchair with all personal belongings. Family members were with the patient when discharged.
--- NOTE | 2018-06-16 13:19 | Discharge Summary ---
Discharge Summary Hospital Course Date of Admission Jun 15, 2018 at 03:25 Date of Discharge Jun 16, 2018 Admitting Diagnosis elevated troponin, seizure Reason for Hospitalization: as above HPI Ely Vila is a 62 year old female who was admitted on Jun 15, 2018 at 03:25 for Troponin,Seizure Consultations Cardiology Procedures None Hospital Course 62 y/o [place] female admitted for recurrent GTC seizures with subtherapeutic dilantin. Phone discussion with Dr. Yanes (Neurology) recommended increasing dilantin dose to 450mg daily from 400mg. Pt was seizure free while inpt. Pt also had an elevated troponin with normal ekg and was asymptomatic. Serial troponins were downtrending, seen by cardiology, who thought the trop level was entirely due to the seizures and no further cardiac workup was recommended as inpt. She was then cleared for DC home with close outpt f/u with her Neurologist , Zach Swanson. As a result of her fall post seizure she sustained a head lac (R forehead region ), s/p repair by Dr. Ernesto Guthrie. Discharge Medications New Medications: Phenytoin (Phenytoin*) 100 Mg/4 Ml Oral.susp 225 MG ORAL TWICE A DAY for 14 Days, #60 ML Continued Medications: Dicyclomine Hcl* (Bentyl*) 10 Mg Capsule 10 MG ORAL FOUR TIMES A DAY, #20 CAP Lorazepam* (Lorazepam*) 1 Mg Tablet 1 MG ORAL DAILY, TAB (This prescription has been renewed) Neomycin/Polymyxin B Sulf/Hc* (Cortisporin Ear Solution*) 10 Ml Solution 2 DROP OTIC FOUR TIMES A DAY for 7 Days, #1 EA Instill in affected ear as directed for 7 days Ondansetron (Zofran) 4 Mg Tab 4 MG ORAL Q6H PRN for Nausea & Vomiting, #20 TAB Discontinued Medications: Phenytoin Sodium Extended* (Dilantin*) 100 Mg Capsule 200 MG ORAL TWICE A DAY, #60 CAP 0 Refills Discharge Condition Upon Discharge: stable Discharge Disposition Patient was discharged to Home (01) Discharge Diagnoses: (1) Elevated troponin level (2) Facial laceration (3) Seizure Fatoumata Valdez MD Jun 16, 2018 13:19
--- NOTE | 2018-06-17 10:24 | Cardiology Report ---
APPROVED REPORT EXAM: Two-dimensional and M-mode echocardiogram with Doppler and color Doppler. INDICATION Left Ventricular Function M-Mode DIMENSIONS IVSd0.8 (0.7-1.1cm)Left Atrium (MM)4.0 (1.6-4.0cm) LVDd3.8 (3.5-5.6cm)Aortic Root2.8 (2.0-3.7cm) PWd0.9 (0.7-1.1cm)Aortic Cusp Exc.1.6 (1.5-2.0cm) LVDs1.7 (2.5-4.0cm) PWs1.5 cm Normal left ventricular chamber size, systolic function and wall motion. Left ventricular ejection fraction estimated to be 60 %. No evidence of left ventricular hypertrophy. No evidence of pericardial effusion. All other cardiac chamber sizes are within normal limits. Focal aortic valve sclerosis with adequate cusp excursion. Thickened mitral valve leaflets with normal excursion. Mild mitral annulus and aortic root calcification. Pulmonic valve not well visualized. Normal tricuspid valve structure. IVC is normal in size with physiological collapse. A color flow and spectral Doppler study was performed and revealed: No aortic insufficiency. Trace mitral regurgitation. Mitral diastolic velocities suggest mild left ventricular diastolic dysfunction (Grade I). Trace tricuspid regurgitation. Tricuspid systolic velocities suggests peak right ventricular systolic pressure of 17 mmHg. No pulmonic regurgitation present.
--- NOTE | 2018-06-19 01:30 | Cardiology Report ---
APPROVED REPORT EKG Measurement Heart [id number] Normal sinus rhythm Normal ECG
== END 2018-06-16 13:10 | disposition home or self-care (01) | DRG 101 ==
LOC: EMR 01:32 → 2W 03:25 → EDBEDREQ 04:23
DX: G40.909 Epilepsy, unspecified, not intractable, without status epilepticus (principal); S01.81XA Laceration without foreign body of other part of head, initial encounter; X58.XXXA Exposure to other specified factors, initial encounter; R74.8 Abnormal levels of other serum enzymes
CPT/HCPCS: 36415; 70450; 71045; 80053; 80185; 80307; 80329; 81003; 82550; 83735; 84100; 84484; 85025; 93005; 93306; 96361; 96365; 96375; 99285; J1165

== ENCOUNTER 2018-10-26 08:50 | Emergency (ER) | payer BC ==
[~2018-10-26] VITALS: Ht 157.5 cm; Wt 74.8 kg
[~2018-10-26 08:50] MED LIST changes: +DILANTIN100 MG ORAL; +LORAZEPAM1 MG ORAL; +PHENYTOIN100 MG/4 M ORAL
[2018-10-26] MEDS ORDERED: DILANTIN100 MG ORAL ×2 (09:00)
[2018-10-26 09:08] VITALS: BP 156/78
--- NOTE | 2018-10-26 09:09 | NUR ---
ED Nurse Note:pt. came with c/o bilateral eye lids swelling, VSS, visual acuity done, no c/o pain
[2018-10-26] MEDS ORDERED: GARAMYCIN 0.3%1 DROP BOTH EYES (09:42)
[2018-10-26] MEDS ORDERED: BENADRYL25 M3 PO (09:42)
[2018-10-26] MEDS ORDERED: PREDNISONE20 MG ORAL (09:42)
[2018-10-26 09:54] VITALS: BP 156/78
--- NOTE | 2018-10-26 09:57 | Emergency Room Report ---
History of Present Illness General Chief Complaint: Eye Problems Source: Patient Present Illness HPI Patient presents with complaints of irritation to bilateral upper eyelids ongoing for the past several days patient feels that they feel Itchy Denies any pain denies any visual change denies any pain to her eyes Denies any fevers or other rash Patient cannot recall specifically placing anything in this area however she does recall wearing upper eye shadow she has worn this before Allergies: Coded Allergies: No Known Allergies (Unverified , 06/19/15) Patient History Past Medical History: see triage record Pertinent Family History: none Last Menstrual Period: menopause Reviewed Nursing Documentation: PMH: Agreed; PSxH: Agreed Nursing Documentation-PMH Past Medical History: No History, Except For Hx Cardiac Problems: No Hx Cancer: No Hx Gastrointestinal Problems: No Hx Seizures: Yes Review of Systems All Other Systems: negative except mentioned in HPI Physical Exam Vital Signs Date Time Temp Pulse Resp B/P (MAP) Pulse Ox O2 Delivery O2 Flow Rate FiO2 10/26/18 08:56 98.1 88 16 156/78 (104) 97 Room Air Sp02 EP Interpretation: reviewed, normal General Appearance: well appearing, no apparent distress Head: normocephalic, atraumatic Eyes: bilateral eye PERRL, bilateral eye other - Very localized erythema and irritation to bilateral upper eyelids no obvious foreign body, no obvious conjunctival involvement ENT: normal pharynx, no angioedema Neck: supple Respiratory: lungs clear, no rhonchi, no retraction Cardiovascular #1: regular rate, rhythm Gastrointestinal: non tender, soft Musculoskeletal: normal inspection Neurologic: alert, oriented x3, responsive Skin: other - As above Lymphatic: no adenopathy Medical Decision Making Diagnostic Impression: Primary Impression: contact dermatitis ER Course Multiple differentials and consideration including but not limited to conjunctivitis, contact dermatitis, allergic reaction Patient's findings are very localized She was placed on gentamicin for consideration of initial infectious pathology however will have mainly Therapy for likely contact dermatitis and return with any changes or concerns Last Vital Signs Date Time Temp Pulse Resp B/P (MAP) Pulse Ox O2 Delivery O2 Flow Rate FiO2 10/26/18 09:08 98.1 75 16 156/78 97 Room Air Status: unchanged Disposition: HOME, SELF-CARE Condition: Stable Scripts Gentamicin Sulfate (Gentamicin Sulfate) 5 Ml Drops 1 DROP BOTH EYES BID for 5 Days, ML Prov: Austen Grove DO 10/26/18 Prednisone* (PREDNISONE*) 20 Mg Tablet 20 MG ORAL BID, #10 TAB Prov: Austen Grove DO 10/26/18 Diphenhydramine HCl (Benadryl) 25 Mg Capsule 25 MG PO Q12HR for 7 Days, CAP Prov: Austen Grove DO 10/26/18 Referrals: NON PHYSICIAN (PCP) Patient Instructions: Contact Dermatitis, [id number] Additional Instructions: Patient is provided with the discharge instructions notified to follow up with primary doctor in the next 2-3 days otherwise return to the er with any worsening symptoms. Please note that this report is being documented using [employer] technology. This can lead to erroneous entry secondary to incorrect interpretation by the dictating instrument. Austen Grove DO Oct 26, 2018 09:57
--- NOTE | 2018-10-26 09:59 | NUR ---
ER DISCHARGE NOTE: Patient is cleared to be discharged per ERMD, pt is aox4, on room air, with stable vital signs. pt was given dc and prescription instructions, pt was able to verbalize understanding, pt is able to ambulate with steady gait. pt took all belongings.
== END 2018-10-26 09:59 | disposition home or self-care (01) ==
LOC: EMR 09:37
DX: L25.9 Unspecified contact dermatitis, unspecified cause (principal); G40.909 Epilepsy, unspecified, not intractable, without status epilepticus
CPT/HCPCS: 99283

== ENCOUNTER 2019-02-11 16:14 | Observation (INO) | payer BC ==
[2019-02-10 22:00] VITALS: BP 156/84
[~2019-02-11] VITALS: Ht 165.1 cm; Wt 72.6 kg
[~2019-02-11 16:14] MED LIST changes: +BENADRYL25 M3 PO; +GARAMYCIN 0.3%1 DROP BOTH EYES; +PREDNISONE20 MG ORAL
--- NOTE | 2019-02-11 16:45 | Emergency Room Report ---
History of Present Illness General Chief Complaint: General Complaint Source: Patient, Significant Other Present Illness HPI Post episode of altered mentation or seizure. She was sitting on the toilet after coloring her hair and leaned to the side. She next woke up with nausea and vomiting. She denies any trauma to her head or the rest of her body. She did not bite her tongue. She was not incontinent. She still has a sour stomach. She did not eat this morning. She claims she has been taking her medications. She is uncertain whether there was loss of consciousness falling asleep or seizure activity. Prior to sent her for evaluation and to have a Dilantin level checked. She denies chest pain during the episode or palpitations. She has generalized weakness but denies focal weakness or numbness. There is no headache. She complains of some dysuria. No fevers, chills, sore throat, diarrhea, abdominal pain, shortness of breath, joint pain, rashes, depression, anxiety, visual changes, dizziness. Allergies: Coded Allergies: No Known Allergies (Unverified , 06/19/15) Patient History Past Medical History: see triage record Social History: Denies: smoking Social History Narrative Reviewed Nursing Documentation: PMH: Agreed; PSxH: Agreed Nursing Documentation-PMH Past Medical History: No History, Except For Hx Cardiac Problems: No Hx Cancer: No Hx Gastrointestinal Problems: No Hx Seizures: Yes Review of Systems All Other Systems: negative except mentioned in HPI Physical Exam Vital Signs Date Time Temp Pulse Resp B/P (MAP) Pulse Ox O2 Delivery O2 Flow Rate FiO2 02/11/19 16:22 97.3 78 16 149/77 (101) 99 Room Air Sp02 EP Interpretation: reviewed, normal General Appearance: alert, GCS 15, non-toxic, other - Frail Head: normocephalic, atraumatic Eyes: bilateral eye normal inspection, bilateral eye PERRL, bilateral eye EOMI ENT: moist mucus membranes - No lingual trauma Neck: supple Respiratory: lungs clear, normal breath sounds Cardiovascular #1: regular rate, rhythm Cardiovascular #2: 2+ radial (R) Gastrointestinal: normal inspection, normal bowel sounds, non tender, no mass, non-distended Genitourinary: no CVA tenderness Musculoskeletal: back normal, gait/station normal, normal range of motion Neurologic: alert, oriented x3, 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 Of being less aware was sitting on the toilet. Differential includes seizure, subtherapeutic Dilantin, falling asleep, vasovagal episode amongst others. In the past she has been treated here for non-ST elevation cardial infarction. Evaluation will be with EKG, chest x-ray and labs including Dilantin level. The patient will receive IV hydration and Zofran. EKG without injury. Chest x-ray no aspiration. Slightly elevated white count. CMP unremarkable. Slightly elevated CPK. Dilantin level 28.6. Urinalysis with ketones. Patient still slightly unsteady on feet and depressed. The face elevated Dilantin her symptoms most likely are related to Dilantin toxicity. Patient admitted to telemetry observation Dr. Lynn. Labs Test 02/11/19 17:00 02/12/19 04:50 02/13/19 10:55 Urine Color Pale yellow Urine Appearance Clear Urine pH 5 (4.5-8.0) Urine Specific [place] 1.025 (1.005-1.035) Urine Protein 2+ (NEGATIVE) Urine Glucose (UA) Negative (NEGATIVE) Urine Ketones 1+ (NEGATIVE) Urine Blood 4+ (NEGATIVE) Urine Nitrite Negative (NEGATIVE) Urine Bilirubin Negative (NEGATIVE) Urine Urobilinogen Normal MG/DL (0.0-1.0) Urine Leukocyte Esterase Negative (NEGATIVE) Urine RBC 2-4 /HPF (0 - 2) Urine WBC 0 /HPF (0 - 2) Urine Squamous Epithelial Cells Few /LPF (NONE/OCC) Urine Bacteria Occasional /HPF (NONE) Total Bilirubin 0.2 MG/DL (0.2-1.0) Aspartate Amino Transf (AST/SGOT) 31 U/L (15-37) Alanine Aminotransferase (ALT/SGPT) 28 U/L (12-78) Alkaline Phosphatase 112 U/L (46-116) Total Creatine Kinase 375 U/L (26-308) Total Protein 7.9 G/DL (6.4-8.2) Albumin 4.3 G/DL (3.4-5.0) Globulin 3.6 g/dL Albumin/Globulin Ratio 1.2 (1.0-2.7) Urine Opiates Screen Negative (NEGATIVE) Urine Barbiturates Screen Negative (NEGATIVE) Phencyclidine (PCP) Screen Negative (NEGATIVE) Urine Amphetamines Screen Negative (NEGATIVE) Urine Benzodiazepines Screen Negative (NEGATIVE) Urine Cocaine Screen Negative (NEGATIVE) Urine Marijuana (THC) Screen Negative (NEGATIVE) Serum Alcohol < 3 mg/dL White Blood Count 10.9 K/UL (4.8-10.8) Red Blood Count 4.82 M/UL (4.20-5.40) Hemoglobin 14.4 G/DL (12.0-16.0) Hematocrit 42.5 % (37.0-47.0) Mean Corpuscular Volume 88 FL (80-99) Mean Corpuscular Hemoglobin 29.9 PG (27.0-31.0) Mean Corpuscular Hemoglobin Concent 33.9 G/DL (32.0-36.0) Red Cell Distribution Width 11.7 % (11.6-14.8) Platelet Count 212 K/UL (150-450) Mean Platelet Volume 6.2 FL (6.5-10.1) Neutrophils (%) (Auto) 68.5 % (45.0-75.0) Lymphocytes (%) (Auto) 22.0 % (20.0-45.0) Monocytes (%) (Auto) 8.4 % (1.0-10.0) Eosinophils (%) (Auto) 0.5 % (0.0-3.0) Basophils (%) (Auto) 0.6 % (0.0-2.0) Sodium Level 142 MMOL/L (136-145) Potassium Level 3.9 MMOL/L (3.5-5.1) Chloride Level 104 MMOL/L (98-107) Carbon Dioxide Level 30 MMOL/L (21-32) Anion Gap 9 mmol/L (5-15) Blood Urea Nitrogen 10 mg/dL (7-18) Creatinine 0.7 MG/DL (0.55-1.30) Estimat Glomerular Filtration Rate > 60 mL/min (>60) Glucose Level 95 MG/DL (74-106) Calcium Level 8.8 MG/DL (8.5-10.1) Phenytoin (Dilantin) Level 13.6 ug/mL (10-20) EKG Diagnostic Results Rate: normal Rhythm: NSR ST Segments: no acute changes Rhythm Strip Diag. Results EP Interpretation: yes Rhythm: NSR, no PVC's, no ectopy Chest X-Ray Diagnostic Results Chest X-Ray Diagnostic Results : Chest X-Ray Ordered: Yes # of Views/Limited/Complete: 1 View Indication: Other EP Interpretation: Yes Interpretation: no consolidation, no effusion, no pneumothorax Impression: No acute disease Electronically Signed by: Electronically signed by Jamie Ballard MD Last Vital Signs Date Time Temp Pulse Resp B/P (MAP) Pulse Ox O2 Delivery O2 Flow Rate FiO2 02/11/19 16:22 97.3 78 16 149/77 (101) 99 Room Air Status: improved Disposition: PLACE IN OBSERVATION Condition: Serious Jamie Ballard MD Feb 11, 2019 16:45
[2019-02-11 17:23] LABS: BASOPHILS % (AUTO) 0.4 % (0.0-2.0); EOSINOPHILS % (AUTO) 0.1 % (0.0-3.0); HEMATOCRIT 44.5 % (37.0-47.0); HEMOGLOBIN 15.2 G/DL (12.0-16.0); LYMPHOCYTES % (AUTO) 10.6 % (20.0-45.0); MEAN CORPUSCULAR VOLUME 87 FL (80-99); MONOCYTES % (AUTO) 5.1 % (1.0-10.0); NEUTROPHILS % (AUTO) 83.7 % (45.0-75.0); PLATELET COUNT 215 K/UL (150-450); RED BLOOD COUNT 5.14 M/UL (4.20-5.40); RED CELL DISTRIBUTION WIDTH 10.8 % (11.6-14.8); WHITE BLOOD COUNT 12.7 K/UL (4.8-10.8)
--- NOTE | 2019-02-11 17:23 | Diagnostic Imaging Report ---
Indication: Chest pain Technique: One view of the chest Comparison: none Findings: Lungs and pleural spaces are clear. Heart size is normal. Impression: No acute process
[2019-02-11 17:24] LABS: APPEARANCE,URINE CLEAR; BILIRUBIN, URINE NEGATIVE (NEGATIVE); COLOR,URINE PALE YELLOW; GLUCOSE, URINE (UA) NEGATIVE (NEGATIVE); KETONES,URINE 1+ (NEGATIVE); LEUKOCYTE ESTERASE ,URINE NEGATIVE (NEGATIVE); NITRITE,URINE NEGATIVE (NEGATIVE); PH,URINE 5 (4.5-8.0); PROTEIN,URINE 2+ (NEGATIVE); UROBILINOGEN,URINE NORMAL MG/DL (0.0-1.0)
[2019-02-11 17:33] LABS: ANION GAP 6 mmol/L (5-15); BLOOD UREA NITROGEN 13 mg/dL (7-18); CARBON DIOXIDE 30 MMOL/L (21-32); CHLORIDE 104 MMOL/L (98-107); CREATININE 0.8 MG/DL (0.55-1.30); POTASSIUM 3.9 MMOL/L (3.5-5.1); SODIUM 140 MMOL/L (136-145)
[2019-02-11 17:48] LABS: ALANINE AMINOTRANSFERASE 28 U/L (12-78); ALBUMIN 4.3 G/DL (3.4-5.0); ALBUMIN/GLOBULIN RATIO 1.2 (1.0-2.7); ALKALINE PHOSPHATASE 112 U/L (46-116); ASPARTATE AMINO TRANSFERASE 31 U/L (15-37); BILIRUBIN,TOTAL 0.2 MG/DL (0.2-1.0); CREATINE KINASE 375 U/L (26-308)
[2019-02-11 18:25] VITALS: BP 131/70
--- NOTE | 2019-02-11 18:36 | NUR ---
ED Nurse Note: Patient care resumed, patient is aox3, on room air. Patient denies any pain or SOB at this time. side rails up, padded. family at bedside.
--- NOTE | 2019-02-11 21:50 | NUR ---
TRANSFER TO FLOOR: Patient transferred to as ordered, per dR Rubio. Report given to RICKY PRATHER . Belongings and medications given to . Family and or S/O informed of transfer.
--- NOTE | 2019-02-11 21:51 | NUR ---
ED Nurse Note: REPORT GIVEN TO RN YAMILKA FROM [facility], PT TRANSFERRED VIA [facility] W/ WINDING INSPECTOR AND TESTER, SZ PRECAUTION IN PLACE, PT VSS, RESP EVEN AND UNLABORED ON RA, NO SX DISTRESS, ALL BELONGINGS SENT W/ PT.
--- NOTE | 2019-02-11 21:55 | NUR ---
NURSE NOTES: Received pt from Christina via sam, [id number], ambulatory, gait steady, denies any pain at this time. IV right hand patent and intact. Will admit pt to floor. Bed in lowest position and locked, side rails up x 2 and padded, call light within reach. Will continue to monitor.
--- NOTE | 2019-02-11 22:22 | NUR ---
NURSE NOTES: Paged Dr. Lynn for admission orders, awaiting for call back.
--- NOTE | 2019-02-11 22:45 | NUR ---
NURSE NOTES: Dr. Lynn called back admission orders obtained. Orders read back and verified. Will carry out orders.
[2019-02-12 05:46] VITALS: BP 133/83
[2019-02-12 07:15] LABS: BASOPHILS % (AUTO) 0.6 % (0.0-2.0); EOSINOPHILS % (AUTO) 0.5 % (0.0-3.0); HEMATOCRIT 42.5 % (37.0-47.0); HEMOGLOBIN 14.4 G/DL (12.0-16.0); MEAN CORPUSCULAR VOLUME 88 FL (80-99); MONOCYTES % (AUTO) 8.4 % (1.0-10.0); NEUTROPHILS % (AUTO) 68.5 % (45.0-75.0); PLATELET COUNT 212 K/UL (150-450); RED BLOOD COUNT 4.82 M/UL (4.20-5.40); RED CELL DISTRIBUTION WIDTH 11.7 % (11.6-14.8); WHITE BLOOD COUNT 10.9 K/UL (4.8-10.8)
[2019-02-12 07:16] LABS: ANION GAP 9 mmol/L (5-15); BLOOD UREA NITROGEN 10 mg/dL (7-18); CALCIUM 8.8 MG/DL (8.5-10.1); CARBON DIOXIDE 30 MMOL/L (21-32); CHLORIDE 104 MMOL/L (98-107); CREATININE 0.7 MG/DL (0.55-1.30); POTASSIUM 3.9 MMOL/L (3.5-5.1); SODIUM 142 MMOL/L (136-145)
--- NOTE | 2019-02-12 07:19 | NUR ---
HAND-OFF: Report given to RICKY Silva. Pt in stable condition.
--- NOTE | 2019-02-12 07:30 | NUR ---
NURSE NOTES: Received report from Jamel GARCÍA. Patient is awake and oriented, no acute distress noted, reporting no pain at this time. IV intact, patent, running 1/2 NS per MD order. SCD's in place. Seizure precautions in place with padded side rails x2, suction and oxygen set up at bedside. Fall precautions in place, patient wearing slip resistant socks, in room close to nurses station, patient educated to call for assistance before getting OOB. Side rails upx2, bed low and locked, call light within reach. Patient and her at bedside updated on plan of care.
[2019-02-12 08:00] VITALS: BP 153/84
--- NOTE | 2019-02-12 08:14 | NUR ---
NURSE NOTES: Patient reported she is hungry and would like to have a diet order. Informed Dr. Lynn of patient's request and gave order for regular diet. Order entered.
--- NOTE | 2019-02-12 11:13 | NUR ---
*-* NO INSURANCE INFORMATION IN THE BAR UNABLE TO SEND CLINICALS OR REVIEWS *-*
[2019-02-12 12:00] VITALS: BP 134/73
[2019-02-12 16:00] VITALS: BP 137/69
--- NOTE | 2019-02-12 17:35 | Consultation ---
Consult Note Consult Note NEUROLOGY CONSULTATION: Full note dictated #[id number] 63-year-old, right-handed, lady, with a history of seizure disorder since age 21. By description seizures are generalized tonic-clonic preceded by a sensation of being unwell. She has been on Dilantin for seizure control with excellent control of her seizures. Last seizure was in June 2018 and the one prior to that was approximately 5 years ago. When she had a seizure in June 2018 she was hospitalized at [facility] and her Dilantin level was 7.2. Since then her dose of Dilantin has been changed from 300 mg daily to 400 mg daily. Since the dose has been increased she has at times felt a little sick in the stomach and unsteady on her feet. Takes Dilantin 100 mg in the morning and 300 mg at bedtime. On 02/10/2019 she was coloring her hair late at night and she apparently went to sleep and woke up a few hours later. When she woke up she felt unwell and had some nausea and vomiting. It is unclear if she had a seizure but when she woke up she was sitting in the same place and had not injured herself in any way. She continued to feel a little unwell and thus on 02/11/2019 she came to the [facility] emergency room. Dilantin level was elevated at 28.6. She was thus admitted for possible Dilantin toxicity. Her Dilantin has been held and she feels much better today. ON EXAM: Mental status examination normal except for being disoriented to the exact date. Speech normal Language normal Cranial nerves II through XII intact Motor normal Sensory normal Reflexes 1+ and bilaterally symmetrical at the biceps triceps brachioradialis and knees. Trace positive at both ankles. Plantar responses flexor. Coordination: [id number] and dpdp-gi-[id number] test normal Sways on Romberg test. Stance normal Gait normal IMPRESSION: 1. 63-year-old lady with a long history of seizures that started at age 21, with seizures under excellent control with the last seizure being in June 2018 and a seizure prior to that being 5 years ago. Following a seizure in June 2018 her dose of Dilantin was increased from 300 to 400 mg daily and when she presented to [facility] for feeling unwell it was discovered that her Dilantin level was significantly elevated. 2. She feels significantly better today and her Dilantin level has dropped to 23. 3. The patient's history and neurological examination are most consistent with a feeling of being unwell due to a significantly elevated Dilantin level. Is unclear as to whether the patient went to sleep or had an ictal event. RECOMMENDATIONS: 1. Would hold Dilantin for another day. 2. When her Dilantin is restarted the dose of Dilantin should be changed to 360 mg nightly. 3. A trough Dilantin level should be obtained approximately 5 days after she restarts taking Dilantin. 4. Follow-up with Dr. Zach Swanson -her personal neurologist. Stephan Shen M.D., M.S.P.H. Stephan Shen MD Feb 12, 2019 17:35
--- NOTE | 2019-02-12 19:25 | NUR ---
NURSE NOTES: Report taken from RICKY Silva. Patient is awake in bed, family at bedside, A&Ox4. No signs of distress on room air. No complaints of pain. Seizure precautions implemented, side-rails padded, spoke with patient about possible symptoms to be aware of. Suction and O2 at bedside. IV stie c/d/i and patent, running 1/2 NS @ 80mls/hr. Skin intact. Call light within reach, bed in lowest position.
--- NOTE | 2019-02-12 19:30 | NUR ---
HAND-OFF: Report given to Sarabjit GARCÍA.
[2019-02-12 20:00] VITALS: BP 130/73
--- NOTE | 2019-02-12 21:30 | NUR ---
NURSE NOTES: Pt requesting for nasal congestion. Texted Dr. ren for order, awaiting for reply.
[2019-02-12] MEDS: Flonase Nasal Inhaler 16gm NASAL SCH (21:56)
--- NOTE | 2019-02-12 22:45 | Consultation ---
DATE OF CONSULTATION: 02/12/2019 NEUROLOGY CONSULTATION CONSULTING PHYSICIAN: Stephan Shen M.D. REQUESTING PHYSICIAN: Austen Lynn M.D. HISTORY: Ms. Ely Vila is a 63-year-old, right-handed, lady, who does have a history of seizures that started at age 21. By description, her seizures are generalized tonic-clonic seizures preceded by a sensation of being unwell. As per her son, who has seen some of her seizures, she apparently complains of not feeling well. She then has some eye rolling up. Following that, she has a cry. Following that, she has generalized stiffness. Following that, she has abnormal jerky movements of all her extremities in a rhythmic fashion. Following that, she becomes unresponsive for approximately a minute or 2. Following that, she becomes confused and disoriented for approximately 15 to 30 minutes. She then returns back to her normal self. She has been on Dilantin for seizure control with excellent control of her seizures. Her last seizure was in June 2018 and the one prior to that was approximately 5 years ago. She was hospitalized at [facility] in June 2018 after she had a breakthrough seizure. At that time, her Dilantin level was low at 7.2. Since then, the dose of Dilantin has been changed from 300 mg daily, which was taken at bedtime to 300 mg at bedtime, and 100 mg in the morning. Since her dose was increased, she at times has felt a little sick in the stomach and at times unsteady on her feet. On February 10, 2019, she was dying her hair late at night and when she had the dye on her hair, she was waiting for it to color her hair and she apparently went to sleep. Instead of sleeping for 20 minutes, she woke up a few hours later. When she woke up, she felt unwell and sick in the stomach and had some nausea and vomiting. It is unclear if she had a seizure or just went to sleep. However when she woke up, she was in the same place and had not injured herself, not bitten her tongue, or lost continence. She continued to feel a little unwell on the next morning and thus on February 11, 2019, she came to the [facility] emergency room. Her Dilantin level was measured and was elevated at 28.6. She was thus admitted for possible Dilantin toxicity. Today, she feels much better. Her Dilantin has been held and the Dilantin level has dropped to 23. She feels pretty close to her normal self at this point in time. PAST MEDICAL HISTORY: Significant for a seizure disorder since age 21. FAMILY HISTORY: Nothing significant. PERSONAL HISTORY: Home: She lives with her and pug. 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 Habits: There is no history of alcohol, tobacco, or illicit drug use. MEDICATIONS: Present medications prior to admission included Dilantin 300 mg at bedtime and 100 mg in the morning. PHYSICAL EXAMINATION: GENERAL: She is a well-developed, well-nourished, pleasant lady, lying in bed, in no acute distress. VITAL SIGNS: Pulse 75/minute, blood pressure 137/69 mmHg, and respirations 16/minute. HEAD: Normocephalic and atraumatic. EENT: Examination was benign. NECK: No neck rigidity was observed. NEUROLOGICAL EXAMINATION: MENTAL STATUS EXAMINATION: She was awake and alert. She was oriented to person, place, and time except for the exact date. She was able to recall 3/3 words immediately after 1 minute and after 3 minutes. She was able to remember Presidents Trump through Shabazz Senior. Her mathematical skills were good. Her visuospatial function was preserved. SPEECH: She had no dysarthria. LANGUAGE: She had no aphasia taking into account that Wolof is her second language. CRANIAL NERVE EXAMINATION: II: The visual moore were intact to confrontation testing. III, IV, : The external ocular movements were full and the pupils 3 mm in diameter, equal, round, regular, and reactive to light. V: She had normal facial sensations and the temporales, masseters, and pterygoids function normally. VII: She had normal facial expressions and no facial asymmetry. VIII: She was able to hear well bilaterally and had no nystagmus. IX: The palate moved symmetrically on phonation. X: She had no hoarseness of voice. XI: The sternocleidomastoids and trapezii functioned normally. XII: The tongue was in the midline without any fasciculations or atrophy. MOTOR SYSTEM: The tone was normal in all four extremities. Examination of muscle mass revealed no focal wasting. Examination of power revealed grade 5/5 power in all muscle groups tested. SENSORY EXAMINATION: She had intact sensations to pinprick, light touch, and graphesthesia. COORDINATION: She performed well on eapukg-fb-tfhz and cvgh-pf-kldq testing. On Romberg test, she swayed, but did not fall to one side or the other. REFLEXES: 1+ and bilaterally symmetrical at the biceps, triceps, brachioradialis, and knees, trace+ at both ankles. The plantar responses were flexor bilaterally. STANCE: She had a normal stance. GAIT: She walked with a normal gait. DIAGNOSTIC IMPRESSION: 1. Ms. Ely Vila is a 63-year-old, right-handed, lady, with a long history of seizures that started at age 21 with the seizures being under excellent control with the last seizure being in June 2018 and the seizure prior to that being 5 years ago. Following the seizure in June 2018, her dose of Dilantin was increased from 300 mg at bedtime to 300 mg at bedtime and 100 mg in the morning. She presented to [facility] for feeling unwell and it was discovered that her Dilantin level was significantly elevated. Prior to that, she had apparently lost some time which she feels was most probably because she went to sleep. 2. She feels significantly better today and her Dilantin level has dropped to 23. 3. Her neurological examination is essentially benign except for globally diminished deep tendon reflexes and a swaying on Romberg test. 4. The patient's history and neurological examination are most consistent with a feeling of being unwell due to a significantly elevated Dilantin level. It is unclear as to whether the patient went to sleep or had an ictal event. RECOMMENDATIONS: 1. The patient and her family were given an explanation of the above-mentioned findings. 2. We should hold the patient's Dilantin for another day. 3. On 02/13/19 she should be started on Dilantin 360 mg at bedtime. 4. A trough Dilantin level should be obtained approximately 5 days after she restarts her Dilantin. 5. She was encouraged to follow up with personal neurologist, Dr. Zach Swanson. Thank you for entrusting me with the care of Ms. Vila. Please do let me know if I can be of any further help. Stephan Shen M.D., M.S.P.H. DR: MONIQUE JOB#: [id number] CC: KELLY
[2019-02-13] VITALS: BP 140/80
--- NOTE | 2019-02-13 06:30 | History and Physical Report ---
DATE OF ADMISSION: 02/11/2019 HISTORY OF PRESENT ILLNESS: The patient is here for Dilantin toxicity of , lethargy. Dr. Shen is consulted. The patient according to her hit her head against a wall yesterday, was ataxic, but did not have syncopal episode. Denies headache. Denies shortness of breath. Denies wheezing. Denies dizziness. Denies weakness. PAST MEDICAL HISTORY: Significant for seizure disorder. PAST SURGICAL HISTORY: . FAMILY HISTORY: Noncontributory. SOCIAL HISTORY: Denies history of smoking, alcohol, or illicit drugs. ALLERGIES: No known allergies. MEDICATIONS: Dilantin 600 mg p.o. at bedtime. REVIEW OF SYSTEMS: HEENT: Denies headaches. RESPIRATORY: Denies shortness of breath, denies cough. CARDIOVASCULAR: Denies chest pain. GASTROINTESTINAL: Denies nausea, vomiting, diarrhea. EXTREMITIES: Denies pain. MENTAL HYGIENE CONSULTANT: No change in vision or speech pattern. Did have ataxia yesterday. PHYSICAL EXAMINATION: VITAL SIGNS: Basically temperature is 98, pulse is 87, blood pressure 123/83. HEENT: PERRLA. NECK: Supple. CHEST: Clear to auscultation. CARDIOVASCULAR: Regular rate and rhythm. No murmurs or extra sounds. GASTROINTESTINAL: Soft, nontender, and nondistended. No organomegaly. EXTREMITIES: No edema. Moves all four extremities. NEUROLOGIC: Sensory intact to light touch on both sides. No tremors. ASSESSMENT AND PLAN: Dilantin toxicity, altered mental status, ataxia due to Dilantin toxicity. Dr. Shen has been consulted. Intravenous fluids will be given. Dr. Vogel has been consulted for dehydration. Austen Lynn M.D. DR: [place] JOB#: [id number] CC:
--- NOTE | 2019-02-13 07:24 | NUR ---
HAND-OFF: Report given to RICKY Johns. Patient is awake and in bed, stable.
--- NOTE | 2019-02-13 07:25 | NUR ---
NURSE NOTES: Received patient awake alert and oriented, lying comfortably in bed with at bedside. IV at right hand, 20 gauge, infusing 1/2NS @ 80ml/hour. Bed at lowest level with 2 side rails up. Call light within reach. In no apparent distress at this time. Will continue to monitor.
[2019-02-13 08:00] VITALS: BP 147/82
[2019-02-13] MEDS: Flonase Nasal Inhaler 16gm NASAL SCH (08:57)
--- NOTE | 2019-02-13 11:12 | Neurology Progress Note ---
Interim History Interim History Interim History Ms. Vila feels well today. She was able to sleep well last night. She has had no nausea, feeling of being ill, or other symptoms. She has been seizure-free. She feels that she is back to her normal self. She is eager to go home. Review of Systems Neuro Review of Systems Benign. Objective Physical Exam Last Vital Signs Date Time Temp Pulse Resp B/P (MAP) Pulse Ox O2 Delivery O2 Flow Rate FiO2 02/13/19 09:00 Room Air 02/13/19 08:00 98.5 88 19 147/82 (103) 95 Neurologic Exam Objective PHYSICAL EXAMINATION: GENERAL: She is a well-developed, well-nourished, pleasant lady, lying in bed, in no acute distress. HEAD: Normocephalic and atraumatic. EENT: Examination was benign. NECK: No neck rigidity was observed. NEUROLOGICAL EXAMINATION: MENTAL STATUS EXAMINATION: She was awake and alert. She was oriented to person, place, and time. She was able to recall 3/3 words immediately after 1 minute and after 3 minutes. She was able to remember Presidents Trump through Shabazz Senior. Her mathematical skills were good. Her visuospatial function was preserved. SPEECH: She had no dysarthria. LANGUAGE: She had no aphasia taking into account that Ukrainian is her second language. CRANIAL NERVE EXAMINATION: II: The visual moore were intact to confrontation testing. III, IV, : The external ocular movements were full and the pupils 3 mm in diameter, equal, round, regular, and reactive to light. V: She had normal facial sensations and the temporales, masseters, and pterygoids function normally. VII: She had normal facial expressions and no facial asymmetry. VIII: She was able to hear well bilaterally and had no nystagmus. IX: The palate moved symmetrically on phonation. X: She had no hoarseness of voice. XI: The sternocleidomastoids and trapezii functioned normally. XII: The tongue was in the midline without any fasciculations or atrophy. MOTOR SYSTEM: The tone was normal in all four extremities. Examination of muscle mass revealed no focal wasting. Examination of power revealed grade 5/5 power in all muscle groups tested. SENSORY EXAMINATION: She had intact sensations to pinprick, light touch, and graphesthesia. COORDINATION: She performed well on [id number] and [id number]-gh-[id number] testing. The Romberg test was negative. REFLEXES: 1+ and bilaterally symmetrical at the biceps, triceps, brachioradialis, and knees, trace+ at both ankles. The plantar responses were flexor bilaterally. STANCE: She had a normal stance. GAIT: She walked with a normal gait. Impression/Recommendations Diagnostic Impression 1. Ms. Ely Vila is a 63-year-old, right-handed, lady, with a long history of seizures that started at age 21 with the seizures being under excellent control with the last seizure being in June 2018 and the seizure prior to that being 5 years ago. Following the seizure in June 2018, her dose of Dilantin was increased from 300 mg at bedtime to 300 mg at bedtime and 100 mg in the morning. She presented to [facility] for feeling unwell and it was discovered that her Dilantin level was significantly elevated. Prior to that, she had apparently lost some time which she feels was most probably because she went to sleep. 2. She feels well today. She was able to sleep well last night. She has had no nausea, feeling of being ill, or other symptoms. She has been seizure-free. She feels that she is back to her normal self. She is eager to go home. 3. Her neurological examination is essentially benign except for globally diminished deep tendon reflexes. 4. The patient's history and neurological examination are most consistent with a feeling of being unwell due to a significantly elevated Dilantin level. It is unclear as to whether the patient went to sleep or had an ictal event. With her Dilantin level returning to normal she feels quite well. Recommendations 1. The patient and her family were given an explanation of the above-mentioned findings. 2. Restart Dilantin 360 mg at bedtime. 3. A trough Dilantin level should be obtained approximately 5 days after she restarts her Dilantin. 4. She was encouraged to follow up with personal neurologist, Dr. Zach Swanson. 5. They should be no contraindications for her to go home from a neurological point of view at this point in time. Stephan Shen M.D., M.Stephan Marques MD Feb 13, 2019 11:12
[2019-02-13 12:00] VITALS: BP 150/75
--- NOTE | 2019-02-13 15:19 | NUR ---
NURSE NOTES: Patient discharged. IV and ID band removed. Belongings reconciled. Discharge instructions given and discussed with patient and family. Verbalized understanding. Escorted from facility to private vehicle without incidence or injury.
[2019-02-13] MEDS ORDERED: Phenytoin 100mg cap ORAL SCH (21:00)
[2019-02-13] MEDS ORDERED: Phenytoin Susp 100mg/4ml ORAL SCH (21:00)
== END 2019-02-13 15:15 | disposition home or self-care (01) ==
LOC: EMR 16:56 → 3E 20:39 → EDBEDREQ 21:02
DX: T42.0X5A Adverse effect of hydantoin derivatives, initial encounter (principal); G40.909 Epilepsy, unspecified, not intractable, without status epilepticus; Y92.9 Unspecified place or not applicable; R41.82 Altered mental status, unspecified; R27.0 Ataxia, unspecified
CPT/HCPCS: 36415; 71045; 80048; 80053; 80185; 80307; 81003; 82550; 85025; 93005; 96361; 96374; 99285; G0480; J2405; J7030

== ENCOUNTER 2019-06-03 15:22 | Observation (INO) | payer SELFPAY ==
[~2019-06-03] VITALS: Ht 157.5 cm; Wt 76.9 kg
[2019-06-03] MEDS ORDERED: ATIVAN0.5 MG ORAL (15:25)
[2019-06-03 15:40] VITALS: BP 150/93
--- NOTE | 2019-06-03 15:40 | NUR ---
ED Nurse Note: PATIENT BROUGTH IN BY RYAN GUZMAN 03 FROM FRIEND'S HOUSE DUE TO SEIZURE. PER FAMILY MEMBERS PATIENT HAD A 4-MINUTE SEIZURE. DENIES ANY TRAUMA. PATIENT PRESENTED WITH NAUSEA, AAO X3, VSS AT THIS TIME.
[2019-06-03 16:26] LABS: BASOPHILS % (AUTO) 1.5 % (0.0-2.0); EOSINOPHILS % (AUTO) 0.7 % (0.0-3.0); HEMATOCRIT 45.9 % (37.0-47.0); LYMPHOCYTES % (AUTO) 44.2 % (20.0-45.0); MEAN CORPUSCULAR VOLUME 89 FL (80-99); MONOCYTES % (AUTO) 6.2 % (1.0-10.0); NEUTROPHILS % (AUTO) 47.4 % (45.0-75.0); PLATELET COUNT 188 K/UL (150-450); RED BLOOD COUNT 5.15 M/UL (4.20-5.40); RED CELL DISTRIBUTION WIDTH 13.5 % (11.6-14.8); WHITE BLOOD COUNT 7.2 K/UL (4.8-10.8)
[2019-06-03 16:30] LABS: ANION GAP 16 mmol/L (5-15); BLOOD UREA NITROGEN 15 mg/dL (7-18); CARBON DIOXIDE 25 MMOL/L (21-32); CHLORIDE 102 MMOL/L (98-107); POTASSIUM 3.7 MMOL/L (3.5-5.1); SODIUM 143 MMOL/L (136-145)
[2019-06-03 16:36] LABS: ALANINE AMINOTRANSFERASE 27 U/L (12-78); ALBUMIN 4.1 G/DL (3.4-5.0); ALKALINE PHOSPHATASE 124 U/L (46-116); ASPARTATE AMINO TRANSFERASE 26 U/L (15-37); BILIRUBIN,TOTAL 0.1 MG/DL (0.2-1.0)
[2019-06-03 18:40] VITALS: BP 145/89
--- NOTE | 2019-06-03 18:55 | Emergency Room Report ---
History of Present Illness General Chief Complaint: Seizure Source: Patient, Family Member, EMS Present Illness HPI 63-year-old female presents the ED status post seizure. Brought in by EMS from friends house. Had a witnessed seizure by friends. Lasted a few minutes. No reported head injury. Patient found in chair. Upon arrival patient somewhat postictal but more awake. Admits to a seizure history. States she takes Dilantin. States she is compliant with her medications. Denies alcohol use or drug use. Notes nausea and vomiting. Denies abdominal pain. Denies fevers or chills. Denies chest pain. No other aggravating relieving factors. Denies any other associated symptoms Allergies: Coded Allergies: No Known Allergies (Unverified , 06/19/15) Patient History Past Medical History: seizures Past Surgical History: none Pertinent Family History: none Social History: Denies: smoking, alcohol use, drug use Now: No Immunizations: UTD Reviewed Nursing Documentation: PMH: Agreed; PSxH: Agreed Nursing Documentation-PMH Past Medical History: No History, Except For Hx Cardiac Problems: No Hx Cancer: No Hx Gastrointestinal Problems: No Hx Neurological Problems: Yes Hx Seizures: Yes Review of Systems All Other Systems: negative except mentioned in HPI Physical Exam Vital Signs Date Time Temp Pulse Resp B/P (MAP) Pulse Ox O2 Delivery O2 Flow Rate FiO2 06/03/19 15:19 98.2 99 17 150/93 (112) 99 Room Air Sp02 EP Interpretation: reviewed, normal General Appearance: no apparent distress, alert, GCS 15, non-toxic Head: normocephalic, atraumatic Eyes: bilateral eye normal inspection, bilateral eye PERRL ENT: hearing grossly normal, normal pharynx, no angioedema, normal voice Neck: full range of motion, supple/symm/no masses Respiratory: chest non-tender, lungs clear, normal breath sounds, speaking full sentences Cardiovascular #1: regular rate, rhythm, no edema Cardiovascular #2: 2+ carotid (R), 2+ carotid (L), 2+ radial (R), 2+ radial (L) , 2+ dorsalis pedis (R), 2+ dorsalis pedis (L) Gastrointestinal: normal bowel sounds, non tender, soft, non-distended, no guarding, no rebound Rectal: deferred Genitourinary: normal inspection, no CVA tenderness Musculoskeletal: back normal, normal range of motion, gait/station normal, non- tender Neurologic: alert, motor strength/tone normal, oriented x3, sensory intact, responsive, speech normal Psychiatric: judgement/insight normal, memory normal, mood/affect normal, no suicidal/homicidal ideation Reflexes: 3+ bicep (R), 3+ bicep (L), 3+ tricep (R), 3+ tricep (L), 3+ knee (R) , 3+ knee (L) Lymphatic: no adenopathy Medical Decision Making Diagnostic Impression: Primary Impression: Seizure disorder Additional Impression: Dilantin toxicity Qualified Codes: T42.0X1A - Poisoning by hydantoin derivatives, accidental ( unintentional), initial encounter ER Course Hospital Course 63-year-old F presents to ED status post seizure. Differential diagnosis includes- breakthrough seizure, alcohol abuse, noncompliance with medication Clinical course Patient placed on stretcher. Initial history and physical I ordered labs, IV fluids , zofran Labs-electrolytes okay, no leukocytosis noted, hemoglobin/hematocrit stable. dilantin level supratherapeutic, trop negative EKG - NSR, no acute ischemic changes interpreted by me I discussed with family. Patient is known to be forgetful and take her medication sometimes more than directed. Patient admitted previously for Dilantin toxicity Case discussed with Dr. Lynn and he agreed to accept the patient to his service for further care and support. i. I feel this is a highly complex case requiring extensive working including EKG/Rhythm strip, Xray/CT/US, Blood/urine lab work, repeat exams while in ED, and administration of strong opiates/narcotics for pain control, admission to hospital or close patient follow up. Diagnosis - seizure, dilantin toxicity admitted to telemetry in serious condition Labs Test 06/03/19 15:53 White Blood Count 7.2 K/UL (4.8-10.8) Red Blood Count 5.15 M/UL (4.20-5.40) Hemoglobin 15.0 G/DL (12.0-16.0) Hematocrit 45.9 % (37.0-47.0) Mean Corpuscular Volume 89 FL (80-99) Mean Corpuscular Hemoglobin 29.2 PG (27.0-31.0) Mean Corpuscular Hemoglobin Concent 32.7 G/DL (32.0-36.0) Red Cell Distribution Width 13.5 % (11.6-14.8) Platelet Count 188 K/UL (150-450) Mean Platelet Volume 7.5 FL (6.5-10.1) Neutrophils (%) (Auto) 47.4 % (45.0-75.0) Lymphocytes (%) (Auto) 44.2 % (20.0-45.0) Monocytes (%) (Auto) 6.2 % (1.0-10.0) Eosinophils (%) (Auto) 0.7 % (0.0-3.0) Basophils (%) (Auto) 1.5 % (0.0-2.0) Sodium Level 143 MMOL/L (136-145) Potassium Level 3.7 MMOL/L (3.5-5.1) Chloride Level 102 MMOL/L (98-107) Carbon Dioxide Level 25 MMOL/L (21-32) Anion Gap 16 mmol/L (5-15) Blood Urea Nitrogen 15 mg/dL (7-18) Creatinine 1.0 MG/DL (0.55-1.30) Estimat Glomerular Filtration Rate 56.2 mL/min (>60) Glucose Level 133 MG/DL (74-106) Calcium Level 9.0 MG/DL (8.5-10.1) Total Bilirubin 0.1 MG/DL (0.2-1.0) Aspartate Amino Transf (AST/SGOT) 26 U/L (15-37) Alanine Aminotransferase (ALT/SGPT) 27 U/L (12-78) Alkaline Phosphatase 124 U/L (46-116) Troponin I 0.000 ng/mL (0.000-0.056) Total Protein 8.1 G/DL (6.4-8.2) Albumin 4.1 G/DL (3.4-5.0) Globulin 4.0 g/dL Albumin/Globulin Ratio 1.0 (1.0-2.7) Salicylates Level 0.9 ug/mL (2.8-20) Acetaminophen Level < 2 MCG/ML (10-30) Phenytoin (Dilantin) Level 21.9 ug/mL (10-20) Serum Alcohol < 3 mg/dL EKG Diagnostic Results Rate: normal Rhythm: NSR ST Segments: no acute changes ASA given to the pt in ED: No Rhythm Strip Diag. Results EP Interpretation: yes Rhythm: NSR, no PVC's, no ectopy Last Vital Signs Date Time Temp Pulse Resp B/P (MAP) Pulse Ox O2 Delivery O2 Flow Rate FiO2 06/03/19 15:40 98.2 17 150/93 99 Room Air 06/03/19 15:40 99 Status: improved Disposition: ADMITTED INPATIENT Condition: Serious Referrals: NON PHYSICIAN (PCP) Dandre Barajas MD Jun 03, 2019 18:55
--- NOTE | 2019-06-03 20:15 | NUR ---
NURSE NOTES: Received telephone report from RICKY Bush from ER
[2019-06-03 20:30] VITALS: BP 142/93
--- NOTE | 2019-06-03 20:30 | NUR ---
NURSE NOTES: Patient brought up to the floor in stable condition, AOx4, at bedside. Denies pain, feeling weak at this time, no vomiting, iv site on left A/C asymptomatic, intact and patent, side rails and headboard padded and suction at bed side for seizure precautions, belonging list checked& signed, Dr. Lynn called for admission orders, bed low&locked, side rails upx3, call light within reach, will continue to monitor and reassess
--- NOTE | 2019-06-03 20:45 | NUR ---
NURSE NOTES: Admission orders received and carried out
[2019-06-03] MEDS ORDERED: Acetaminophen 500mg (ES) tab ORAL PRN (22:15)
--- NOTE | 2019-06-03 23:37 | NUR ---
ED Nurse Note: Patient was admited to Tele for observation due to seizure and Dilantin toxisity. Patient was transfered to the unit via gurney, by ACLS protocol, with all belongings.
[2019-06-04] VITALS: BP 140/84
[2019-06-04 04:00] VITALS: BP 129/74
--- NOTE | 2019-06-04 07:20 | NUR ---
HAND-OFF: Report given to RICKY Wang, patient in stable condition,plan of care endorsed.
--- NOTE | 2019-06-04 07:30 | NUR ---
NURSE NOTES: Received pt from HERBERT GARCÍA, Pt is awake and alert, pt is on RA, no SOB or acute respiratory distress noted. pt has intact iv access LAC 20G is running well. Pt is on continues heart monitoring. no complain of pain at this moment. pt is NPO. is on bed side. all needs attended, bed is locked and is in the lowest position, call light within easy reach. will continue to monitor.
[2019-06-04 07:37] LABS: BASOPHILS % (AUTO) 0.8 % (0.0-2.0); EOSINOPHILS % (AUTO) 0.3 % (0.0-3.0); HEMATOCRIT 41.1 % (37.0-47.0); HEMOGLOBIN 14.4 G/DL (12.0-16.0); LYMPHOCYTES % (AUTO) 27.1 % (20.0-45.0); MEAN CORPUSCULAR VOLUME 87 FL (80-99); MONOCYTES % (AUTO) 7.9 % (1.0-10.0); NEUTROPHILS % (AUTO) 63.9 % (45.0-75.0); PLATELET COUNT 194 K/UL (150-450); RED BLOOD COUNT 4.69 M/UL (4.20-5.40); WHITE BLOOD COUNT 8.6 K/UL (4.8-10.8)
[2019-06-04 08:00] VITALS: BP 136/66
[2019-06-04 08:12] LABS: ALANINE AMINOTRANSFERASE 23 U/L (12-78); ALBUMIN 3.5 G/DL (3.4-5.0); ALKALINE PHOSPHATASE 101 U/L (46-116); ANION GAP 9 mmol/L (5-15); ASPARTATE AMINO TRANSFERASE 21 U/L (15-37); BILIRUBIN,TOTAL 0.3 MG/DL (0.2-1.0); BLOOD UREA NITROGEN 13 mg/dL (7-18); CALCIUM 8.8 MG/DL (8.5-10.1); CARBON DIOXIDE 28 MMOL/L (21-32); CHLORIDE 106 MMOL/L (98-107); CREATININE 0.7 MG/DL (0.55-1.30); POTASSIUM 3.6 MMOL/L (3.5-5.1); SODIUM 143 MMOL/L (136-145)
[2019-06-04 12:00] VITALS: BP 130/61
--- NOTE | 2019-06-04 14:08 | History & Physical ---
History of Present Illness General Reason for Hospitalization: Seizure Present Illness Allergies: Coded Allergies: No Known Allergies (Unverified , 06/19/15) Medication History Scheduled Lorazepam* (Ativan*), 0.5 MG ORAL THREE TIMES A DAY, (Reported) Phenytoin Sodium Extended* (Dilantin*), 300 MG ORAL BEDTIME, (Reported) Patient History Healthcare decision maker Resuscitation status Advanced Directive on File No Family History Family History: In first degree relatives is unremarkable Review of Systems Review of Symptoms General ROS: no weight loss or fever Psychological ROS: no depression or mood changes, no memory loss Ophthalmic ROS: no visual changes or eye irritation ENT ROS: no nasal congestion, hearing loss, dizziness Allergy and Immunology ROS: no allergic symptoms or urticaria Hematological and Lymphatic ROS: no swollen glands, unusual bleeding or bruising Endocrine ROS: no polyuria, polydipsia, weight changes, temperature intolerance Respiratory ROS: no cough, shortness of breath, or wheezing Cardiovascular ROS: no chest pain or dyspnea on exertion Gastrointestinal ROS: denies abdominal pain, bright red blood in stool. Musculoskeletal ROS: no myalgias or arthralgias Neurological ROS: no TIA or stroke symptoms Dermatological ROS: no new or changing skin lesions, rashes or pruritis Physical Exam Physical Exam General appearance: alert, cooperative, no distress, appears stated age Head: Normocephalic, without obvious abnormality, atraumatic Eyes: conjunctivae/corneas clear. PERRL, EOM's intact. Fundi benign Throat: Lips, mucosa, and tongue normal. Teeth and gums normal Neck: supple, symmetrical, trachea midline, no adenopathy, thyroid: not enlarged, symmetric, no tenderness/mass/nodules, no carotid bruit and no JVD Lungs: clear to auscultation bilaterally Heart: regular rate and rhythm, S1, S2 normal, no murmur, click, rub or gallop Abdomen: soft, non-tender. Bowel sounds normal. No masses, no organomegaly Extremities: extremities normal, atraumatic, no cyanosis or edema Pulses: 2+ and symmetric Skin: Skin color, texture, turgor normal. No rashes or lesions Neurologic: Grossly normal Last 24 Hour Vital Signs Date Time Temp Pulse Resp B/P (MAP) Pulse Ox O2 Delivery O2 Flow Rate FiO2 06/04/19 12:00 98.1 72 19 130/61 (84) 97 06/04/19 11:31 68 06/04/19 09:00 Room Air 06/04/19 08:00 97.7 81 19 136/66 (89) 97 06/04/19 07:37 82 06/04/19 04:00 97.9 86 18 129/74 (92) 96 06/04/19 04:00 82 06/04/19 00:00 77 06/04/19 00:00 98.1 90 18 140/84 (102) 96 06/03/19 20:30 94 06/03/19 20:30 98.2 93 18 142/93 (109) 99 06/03/19 20:30 Room Air 06/03/19 20:05 98.2 88 17 145/89 99 Room Air 06/03/19 18:40 98.2 88 17 145/89 99 Room Air 06/03/19 15:40 98.2 17 150/93 99 Room Air 06/03/19 15:40 99 17 Room Air 06/03/19 15:19 98.2 99 17 150/93 (112) 99 Room Air Laboratory Tests Test 06/03/19 15:53 06/04/19 06:49 White Blood Count 7.2 K/UL (4.8-10.8) 8.6 K/UL (4.8-10.8) Red Blood Count 5.15 M/UL (4.20-5.40) 4.69 M/UL (4.20-5.40) Hemoglobin 15.0 G/DL (12.0-16.0) 14.4 G/DL (12.0-16.0) Hematocrit 45.9 % (37.0-47.0) 41.1 % (37.0-47.0) Mean Corpuscular Volume 89 FL (80-99) 87 FL (80-99) Mean Corpuscular Hemoglobin 29.2 PG (27.0-31.0) 30.7 PG (27.0-31.0) Mean Corpuscular Hemoglobin Concent 32.7 G/DL (32.0-36.0) 35.1 G/DL (32.0-36.0) Red Cell Distribution Width 13.5 % (11.6-14.8) 12.0 % (11.6-14.8) Platelet Count 188 K/UL (150-450) 194 K/UL (150-450) Mean Platelet Volume 7.5 FL (6.5-10.1) 6.2 FL (6.5-10.1) L Neutrophils (%) (Auto) 47.4 % (45.0-75.0) 63.9 % (45.0-75.0) Lymphocytes (%) (Auto) 44.2 % (20.0-45.0) 27.1 % (20.0-45.0) Monocytes (%) (Auto) 6.2 % (1.0-10.0) 7.9 % (1.0-10.0) Eosinophils (%) (Auto) 0.7 % (0.0-3.0) 0.3 % (0.0-3.0) Basophils (%) (Auto) 1.5 % (0.0-2.0) 0.8 % (0.0-2.0) Sodium Level 143 MMOL/L (136-145) 143 MMOL/L (136-145) Potassium Level 3.7 MMOL/L (3.5-5.1) 3.6 MMOL/L (3.5-5.1) Chloride Level 102 MMOL/L (98-107) 106 MMOL/L (98-107) Carbon Dioxide Level 25 MMOL/L (21-32) 28 MMOL/L (21-32) Anion Gap 16 mmol/L (5-15) H 9 mmol/L (5-15) Blood Urea Nitrogen 15 mg/dL (7-18) 13 mg/dL (7-18) Creatinine 1.0 MG/DL (0.55-1.30) 0.7 MG/DL (0.55-1.30) Estimat Glomerular Filtration Rate 56.2 mL/min (>60) > 60 mL/min (>60) Glucose Level 133 MG/DL (74-106) H 112 MG/DL (74-106) H Calcium Level 9.0 MG/DL (8.5-10.1) 8.8 MG/DL (8.5-10.1) Total Bilirubin 0.1 MG/DL (0.2-1.0) L 0.3 MG/DL (0.2-1.0) Aspartate Amino Transf (AST/SGOT) 26 U/L (15-37) 21 U/L (15-37) Alanine Aminotransferase (ALT/SGPT) 27 U/L (12-78) 23 U/L (12-78) Alkaline Phosphatase 124 U/L (46-116) H 101 U/L (46-116) Troponin I 0.000 ng/mL (0.000-0.056) Total Protein 8.1 G/DL (6.4-8.2) 6.9 G/DL (6.4-8.2) Albumin 4.1 G/DL (3.4-5.0) 3.5 G/DL (3.4-5.0) Globulin 4.0 g/dL 3.4 g/dL Albumin/Globulin Ratio 1.0 (1.0-2.7) 1.0 (1.0-2.7) Salicylates Level 0.9 ug/mL (2.8-20) L Acetaminophen Level < 2 MCG/ML (10-30) L Phenytoin (Dilantin) Level 21.9 ug/mL (10-20) H 18.5 ug/mL (10-20) Serum Alcohol < 3 mg/dL Height (Feet): 5 Height (Inches): 2.00 Weight (Pounds): 169 Medications Current Medications Medications (Trade) Dose Ordered Sig/Narendra Route PRN Reason Start Time Stop Time Status Last Admin Dose Admin Acetaminophen (Tylenol) 500 mg Q4H PRN ORAL Mild Pain/Temp > 100.5 06/03/19 22:15 07/03/19 22:14 Ondansetron HCl (Zofran) 4 mg Q6H PRN IVP Nausea & Vomiting 06/03/19 22:15 07/03/19 22:14 Sodium Chloride 1,000 ml @ 55 mls/hr [id number] IV 06/03/19 23:00 07/03/19 22:59 06/03/19 23:06 Assessment/Plan Assessment/Plan: IM H&P Covering for Dr. Teto Boyce RFA: Seizure witnessed DOS: 06/04/2019 ID 63 y/o [place] female who presented to the ED last night with seizures, witnessed. Pt has a history of seizure disorder, followed by Dr. Swanson as an outpatient. She is compliant with her dilantin, takes 200mg bid without missing any recent doses. No fevers/chills, flu like symptoms, or any other complaints. Pt fell and hit her head, sustained a laceration on the R forehead region. She has been seizure free for 5 years on this current dose. She was loaded with 500mg IV dilantin in the ED and also given ativan. She denies hx of CAD/CHF, and denies ever experiencing ana pain or dyspnea, however a trop was checked in the ED and it was indeterminate range. The patient was then admitted to the floor for continued eval and care Dilantin level was 21.9 on admission, to see neuro shortly. Allergies: Coded Allergies: No Known Allergies (Unverified , 06/19/15) Medication History Scheduled Dicyclomine Hcl* (Bentyl*), 10 MG ORAL FOUR TIMES A DAY Lorazepam* (Lorazepam*), 1 MG ORAL DAILY, (Reported) Neomycin/Polymyxin B Sulf/Hc* (Cortisporin Ear Solution*), 2 DROP OTIC FOUR TIMES A DAY Phenytoin Sodium Extended* (Dilantin*), 200 MG ORAL TWICE A DAY, (Reported) Scheduled PRN Ondansetron (Zofran), 4 MG ORAL Q6H PRN for Nausea & Vomiting Patient History History Provided By: Patient Healthcare decision maker Resuscitation status Advanced Directive on File Past Medical/Surgical History Past Medical/Surgical History: (1) Seizure Social History: She is , has 2 kids, 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 (1) No significant social history (2) Family history in first degree relatives is unremarkable ROS (review of systems): Constitutional: No fever, no chills, no night sweats, no fatigue Skin: No rashes, lumps, itchiness, dryness HEENT: No SERRATO, ear ache, visual changes, double vision, nosebleeds Breasts: No lumps, pain, discharge Pulmonary: No cough, sputum, shortness of breath, coughing up blood Cardiovascular: No chest pain, tightness, palpitations, syncope, PND GI: No nausea, vomiting, diarrhea, melena, hematochezia, change in appetite, : No dysuria, frequency, urgency, urinary incontinence, foamy urine Musculoskeletal: No joint swelling or muscle pain, trauma, back pain Neurologic: No dizziness, fainting, seizures, changes in smell or taste Psychiatric: No nervousness, stress, or depression, anxiety, hallucinations Endocrine: No weight change, heat or cold intolerance, tremor, insomnia Physical Exam: Vitals: reviewed General: NAD HEENT: nc, at Neck: supple Chest: clear breath sounds bilaterally Cardiovascular: RRR, no s3, s4 Abdomen: soft, nontender, nd Extremities: no cce, normal range of motion Neuro: alert and oriented Labs: noted Imaging: reviewed A/R (1) Seizure Assessment & Plan: Recurrent seizures with subtherapeutic dilantin level, unclear etiology Discussed case with Dr. Kam Yanes over the phone who is covering Equigerminal. --> may consider ncrease the dose of dilantin, as per his recs --> dc planning per Dr. Yanes --> Ativan prn --> prior CT head neg # Elevated troponin level --> in past was neg --> ekg serially as needed -> cards recs prn # Facial laceration --> improved --> as per dressing changes # Azotemia --> elev bun --> per renal DW consultants and with rn MIPS Hospital declaration INPATIENT level of care is warranted for this patient because patient is a 89 year old with who presents with suspicion of . I have a high level of concern because . Patient is at high risk for . Plan of care/treatment include . Patient care is expected to be greater than 2 midnights. OBSERVATION level of care is warranted for this patient. Patient is a 89 year old with who presents with . Patient will be admitted for 1 midnight, but if additional night(s) is/are necessary, patient will be converted to inpatient status for the entire hospitalization Disposition: Once the patient is stable to leave the hospital, I anticipate the patient will likely be discharged to the following environment: Estimated discharge date: I spent 70 minutes on this patient's case, and minutes was dedicated to counseling and/or care coordination. MIPS (Merit-based Incentive Payment System) Applicable CPT: 63336, 96539 CHECK ALL THAT ARE MET: Measure #5 (CHF): All ages. Prescribe JOE/ARB upon discharge for patients with left ventricular systolic dysfunction. If not, the reason is clearly documented in the medical chart. Measure #8 (CHF): All ages. Prescribe a beta je upon discharge for patients with left ventricular systolic dysfunction. If not, the reason is clearly documented in the medical chart. Measure #47 Advance care plan or surrogate decision maker documented in the medical record. Measure #130 The provider has documented, updated, or reviewed the patients current medication list and has documented it in the patients note. Measure #374 (All): Send report to referring provider. Measure #407(Sepsis due to MSSA bacteremia): Age 18+ Patient treated with a beta-lactam antibiotic (Nafcillin, Oxacillin or Cefazolin) as definitive therapy. MEDICAL COMPLEXITY High complexity medical decision making (need 2/3 categories) Problem - need 4 points Acute/new problem with new plan for workup (4 points, 1 max) Acute/new problem without additional workup (3 points, 1 max) Unstable chronic problem actively being managed (2 point each, 2 max) Stable chronic problem actively being managed (1 point each, 2 max) Self-limited/transient process (constipation, muscle ache, etc) (1 point each , 2 max) Data - need 4 points Reviewed labs/imaging studies (1 points, 2 max) Independent review of imaging (EKG, xrays, etc) (2 points, 2 max) Discussed case with consult/other MD/RN (2 points, 2 max) High Risk - qualify if have one of the following: Severe exacerbation of acute problem, acute mental status change, IV narcotics , monitoring drug levels (vancomycin, INR, tacrolimus etc) Manjit Jung MD Jun 04, 2019 14:08
[2019-06-04 16:00] VITALS: BP 121/80
--- NOTE | 2019-06-04 16:26 | NUR ---
NURSE NOTES: Urin sample sent to lab, waiting for result.
--- NOTE | 2019-06-04 17:15 | Consultation ---
DATE OF CONSULTATION: 06/04/2019 NEUROLOGIC CONSULTATION CONSULTING PHYSICIAN: Kam Yanes M.D. CHIEF COMPLAINT: There is the third [facility] admission for this 63-year-old right-handed [place] woman with a history of seizure disorder going back to the age of [address] Zach Swanson is her neurologist. The patient was admitted with a seizure yesterday on 06/03/2019. The patient was seen in the emergency room here on 05/06/2006 with seizure and on 06/15/2018 was admitted with a seizure. She was also admitted on 02/13/2019 with Dilantin toxicity. She saw Dr. Stephan Shen, neurologist. Her Dilantin level at that time was 28.6. She felt much better and was discharged with a Dilantin level of 13.6 on 02/13/2019. The patient, however, yesterday was feeling unwell, had a bitter taste in her mouth. She sat down in a chair, blacked out suddenly for about 3 minutes, had tonic-clonic activity, had incontinence, and had bitten tongue on her right side of her mouth. Afterwards, she had a slight headache and had some neck pain on the left side. She was brought to this hospital. Dilantin level was almost 22. Today, it is 18.5. The patient is feeling better today. She had nothing to drink. In fact, she does not drink. She does not smoke or take illegal drugs. There is no history of head injury or stroke. She denies any memory loss, language disorder, loss of smell or taste, diplopia, blurred vision, gait disorder, dysarthria, dysphagia, back pain, muscle weakness, numbness, or tingling anywhere. Her last seizure was several months ago. The patient had a urinalysis, which was fairly unremarkable. Chemistries are normal except for a blood sugar 133, calcium was 8.8. CBC was basically normal with a normal white count, normal platelets. The patient did have MRIs and EEGs in the past, which she states were "normal." She has no family history of neurologic disease. PAST MEDICAL HISTORY/PAST MEDICAL ILLNESSES: Essentially none. SURGERIES: She had 2 C-sections. ALLERGIES: None. SOCIAL HISTORY: She is , has 2 children. Does not work. FAMILY HISTORY: Father of kidney failure. Mother probably of heart disease. She has a brother who had a kidney transplant and kidney disease. REVIEW OF SYSTEMS: Her appetite is good. She weighs 170 pounds. She is over 5 feet tall, she is unsure of her height. PHYSICAL EXAMINATION: GENERAL: She is a well-developed, obese woman, lying in bed, no acute distress. VITAL SIGNS: Temperature is 97.9 degrees, pulse is 82 and regular, blood pressure is 129/74, respirations 18. HEENT: Examination of the head is normal. NECK: She has no posterior cervical tenderness or muscle spasm with limitation of motion. Carotids are +1. There is a questionable bruit on the left side. LUNGS: Clear to auscultation. CARDIOVASCULAR: PMI was not felt. JVP was flat. The patient has a normal S1. S2 is physiologically split. There is no S3, S4, murmurs, or rubs appreciated. ABDOMEN: Obese. Bowel sounds intact. No tenderness, masses, or organomegaly. BACK: There is no tenderness to percussion. EXTREMITIES: Normal. NEUROLOGIC EXAMINATION: MENTAL STATUS: Judgment could not be done because of language barrier. Affect was appropriate. Memory, past memory was intact to date of 1955. Immediate recall 3/3 objects. Recent recall 3/3 at 5 minutes. Intellect could not be done. Orientation, date, she knew it is May 2019, was unsure of the date. She knew it is Sunday. She knew she is at [facility] second floor and oriented to person. Language function, German is her second language. French was probably intact. She could spell word forwards, but not backwards. Could not understand that I wanted her to spell it backwards. CRANIAL NERVE EXAMINATION: CRANIAL NERVE II: Visual moore intact to confrontation. Fundi not visualized. CRANIAL NERVES III, IV, AND : Extraocular motility was full with saccadic smooth pursuit noted. Pupils are approximately 5 mm, round, reactive to light and near. CRANIAL NERVE V: Facial and corneal sensation intact to fine touch. Pterygoid strength is 5/5. CRANIAL NERVE VII: Facial strength is 5/5 bilaterally. CRANIAL NERVE VIII: Auditory acuity is intact bilaterally. CRANIAL NERVES IX AND X: Gag is intact bilaterally. CRANIAL NERVE XI: Sternocleidomastoid strength is 5/5. CRANIAL NERVE XII: Tongue protrudes in the midline without fasciculations or atrophy. MUSCLE EXAMINATION: Muscle bulk and tone are normal. Strength is 5/5 proximally and distally without asterixis. REFLEXES: +2 in the upper extremities, +1.5 to 2 at the knees, 0 at the ankles with downgoing toes and testing for Babinski response. COORDINATION: Aoailu-[id number]-yilb, rapid alternating movements, [id number] testing is intact. GAIT AND STATION: Not tested. SENSORY EXAM: Pinprick, fine touch, proprioception are all normal. IMPRESSION: It is possible that the patient could have had slight elevation in Dilantin level with Dilantin-induced seizure or had a syncope attack. In fact, she had a bitter taste in her mouth suggests the possibility of a seizure and some of the symptoms are similar to seizure before. The patient has not lost weight and she has been on the same dose for a while. It is she could have had a reactive seizure from systemic illness, possibly a viral illness. Question is what to do with her Dilantin level at this time. We can lower the dose to 325 a day, giving her 350 mg 1 day, 300 mg the next day is 100. Send her to Dr. Swanson and see if he wants to either change her medications, put her on the second drug or continue the same dose or increase the same dose back to her own dose. An alternative would just be to continue her dose with Dr. Swanson determine what to do. She also may have a bruit in the left carotid artery. This can be evaluated as an outpatient. PLAN: 1. I will speak to you about this case. 2. Setup appointment with Dr. Swanson. Kam Yanes MD DR: SEBASTIAN JOB#: [id number] CC:
[2019-06-04 17:23] LABS: APPEARANCE,URINE CLEAR; BILIRUBIN, URINE NEGATIVE (NEGATIVE); COLOR,URINE PALE YELLOW; GLUCOSE, URINE (UA) NEGATIVE (NEGATIVE); KETONES,URINE NEGATIVE (NEGATIVE); LEUKOCYTE ESTERASE ,URINE NEGATIVE (NEGATIVE); NITRITE,URINE NEGATIVE (NEGATIVE); PH,URINE 7 (4.5-8.0); PROTEIN,URINE NEGATIVE (NEGATIVE); UROBILINOGEN,URINE NORMAL MG/DL (0.0-1.0)
--- NOTE | 2019-06-04 19:14 | NUR ---
CASE MANAGEMENT: REVIEW 63 YEAR OLD FEMALE BIBA FROM HOME CC: SEIZURE SI: SEIZURE DISORDER . DILANTIN TOXICITY . FACIAL LACERATION T 98.2 HR 99 RR 17 BP 150/93 SAT 99% ROOM AIR TOX: PHENYTOIN 21.9 IS: NS IVF BOLUS X1 ZOFRAN IV X1 NPO SEIZURE PRECAUTIONS PATIENT ADMITTED TO TELEMETRY UNIT 06/03/2019 DCP: PATIENT IS FROM HOME
--- NOTE | 2019-06-04 19:30 | NUR ---
Received report from nurse Felipe GARCÍA. Patient with family members visiting and shows no distress at this time. Safety issues observed, Bed at its lowest and locked. Call light within easy reach. Continue to monitor patient. Assisted patient with her needs.
--- NOTE | 2019-06-04 19:34 | NUR ---
HAND-OFF: Report given to RN DANIELLE. Pt is awake and stable, no seizure during shift.
[2019-06-04 20:00] VITALS: BP 140/71
[2019-06-05] VITALS: BP 125/71
[2019-06-05 04:00] VITALS: BP 130/64
--- NOTE | 2019-06-05 07:30 | NUR ---
NURSE NOTES: Received pt from KYLE RN, Pt is awake and alert, pt is on RA, no SOB or acute respiratory distress noted. pt has intact iv access LAC 20G is running well. Pt is on continues heart monitoring. no complain of pain at this moment. pt is eating breakfast by observation. all needs attended, bed is locked and is in the lowest position, call light within easy reach. will continue to monitor.
[2019-06-05 08:00] VITALS: BP 141/77
[2019-06-05] MEDS ORDERED: Phenytoin Susp 100mg/4ml ORAL SCH (09:00)
[2019-06-05] MEDS ORDERED: DILANTIN100 MG ORAL ×2 (09:03)
--- NOTE | 2019-06-05 11:26 | General Progress Note ---
Assessment/Plan Assessment/Plan: IM PROGRESS NOTE Covering for Dr. Teto Boyce A/R # Seizure Recurrent seizures with subtherapeutic dilantin level, unclear etiology --> Discussed case with Dr. Kam Yanes over the phone who is covering Lucy. --> may consider ncrease the dose of dilantin, as per his recs --> dc planning per Dr. Yanes --> Ativan prn --> prior CT head neg # Elevated troponin level --> in past was neg --> ekg serially as needed -> cards recs prn # Facial laceration --> improved --> as per dressing changes # Azotemia --> elev bun --> per renal DW consultants and with rn Subjective Allergies: Coded Allergies: No Known Allergies (Unverified , 06/19/15) Subjective 06/05: on tele, awake, no overnight events, on room air Objective Last 24 Hour Vital Signs Date Time Temp Pulse Resp B/P (MAP) Pulse Ox O2 Delivery O2 Flow Rate FiO2 06/05/19 09:00 Room Air 06/05/19 08:00 98.2 73 17 141/77 (98) 98 06/05/19 07:28 77 06/05/19 04:00 67 06/05/19 04:00 97.7 63 18 130/64 (86) 95 06/05/19 00:00 71 06/05/19 00:00 98.1 69 20 125/71 (89) 96 06/04/19 21:00 Room Air 06/04/19 20:00 98.1 86 20 140/71 (94) 97 06/04/19 20:00 68 06/04/19 16:00 97.7 77 20 121/80 (94) 97 06/04/19 15:19 77 06/04/19 12:00 98.1 72 19 130/61 (84) 97 06/04/19 11:31 68 Intake and Output 06/04/19 06/05/19 19:00 07:00 Intake Total 780 ml 55 ml Balance 780 ml 55 ml Intake Oral 120 ml IV Total 660 ml 55 ml # Voids 2 1 # Bowel Movements 1 1 Laboratory Tests 06/04/19 16:25: Urine Color Pale yellow, Urine Appearance Clear, Urine pH 7, Urine Specific Mcintyre 1.005, Urine Protein Negative, Urine Glucose (UA) Negative, Urine Ketones Negative, Urine Blood 2+H, Urine Nitrite Negative, Urine Bilirubin Negative, Urine Urobilinogen Normal, Urine Leukocyte Esterase Negative, Urine RBC 2-4H, Urine WBC 0-2, Urine Squamous Epithelial Cells Few, Urine Bacteria Few Height (Feet): 5 Height (Inches): 2.00 Weight (Pounds): 169 Objective Physical Exam: Vitals: reviewed General: NAD HEENT: room air Neck: supple Chest: clear breath sounds bilaterally Cardiovascular: RRR, no s3, s4 Abdomen: soft, nontender, nd Extremities: no cce, normal range of motion Neuro: alert and oriented Manjit Jung MD Jun 05, 2019 11:26
[2019-06-05 12:00] VITALS: BP 132/70
--- NOTE | 2019-06-05 12:09 | NUR ---
NURSE NOTES: pt has D/C order, all discharge assessments and instructions done and pt verbally confirmed to understand all. pt is stable. V/S stable, all belongings are with pt and she signed belonging list. pt has appointment with Dr CARTY TOMORROW. IV access D/C, pt refused wheelchair, pt left hospital with accompany of MICHAEL.
--- NOTE | 2019-06-08 18:31 | Discharge Summary ---
Discharge Summary Discharge Summary _ DATE OF ADMISSION: 06/03/2019 DATE OF DISCHARGE: 06/05/2019 ADMITTING MD: Dr. Austen Ge DISCHARGED BY: Dr. Manjit Jung MANAGER INTERNET: Dr. Kam Yanes BRIEF HOSPITAL COURSE: Patient is a 63-year-old female, who presented to ED due to witnessed seizure. The patient has a history of seizure disorder being followed by Dr. Bell outpatient. Patient is compliant with Dilantin. She denied any fever chills or flulike symptoms. Patient fell and hit her head, sustained a laceration on the right forehead region. She had been seizure-free for 5 years on current medication. Upon evaluation at ED, blood work did not show any leukocytosis. Hemoglobin and hematocrit were stable. Troponin was negative. Dilantin level 21.9. Urinalysis normal. EKG was in normal sinus rhythm with no acute changes. She was loaded with Dilantin. She was then admitted under observation. She underwent neuro evaluation. The patient had been stable on previous medication. Seizure could have been reactive from systemic illness, possibly viral illness. Dilantin dose was decreased. Phenytoin level the following day was normal. Patient was cleared for discharge to follow-up with neurologist. FINAL DIAGNOSES: Seizure disorder with exacerbation of seizure Elevated troponin level Facial laceration Azotemia DISPOSITION: Patient was discharged home. DISCHARGE MEDICATIONS: Refer to Discharge Medication List. DISCHARGE INSTRUCTIONS: Follow-up with neurologist in a week. I have been assigned to complete a discharge summary on this account, I was not involved with the patient's management.--AIDEN Russ Jacqueline Robles NP Jun 08, 2019 18:31
== END 2019-06-05 12:14 | disposition home or self-care (01) ==
LOC: EDBD 15:22 → EMR 18:06 → 2E 18:11 → EDBEDREQ 18:44 → 2E 22:01
DX: G40.909 Epilepsy, unspecified, not intractable, without status epilepticus (principal); R79.89 Other specified abnormal findings of blood chemistry; S01.81XA Laceration without foreign body of other part of head, initial encounter; W19.XXXA Unspecified fall, initial encounter; Y92.9 Unspecified place or not applicable; T42.0X1A Poisoning by hydantoin derivatives, accidental (unintentional), initial encounter; E66.9 Obesity, unspecified; Z68.31 Body mass index [BMI] 31.0-31.9, adult
CPT/HCPCS: 36415; 80053; 80185; 81001; 84484; 85025; 93005; 96361; 96374; 99284; G0480; J2405; J7030; G0378